=== PATIENT | female | born 1990 | race Caucasian/White ===

== ENCOUNTER → 2017-07-16 07:59 | Outpatient (CLI) | payer OTHER, MEDICAID, SELFPAY ==
--- NOTE | 2017-07-16 | DI.MRI.S_ITS ---
PROCEDURE: MR LUMBAR SPINE WO CON INDICATIONS: LUMBAGO WITH SCIATICA TECHNIQUE: Noncontrast sagittal T1 spin echo and T2 fast echo, sagittal STIR, axial T1 and T2 fast spin echo through the lumbar spine. In cases with scoliosis, additional coronal T2 fast spin echo may be performed. COMPARISON: [facility] [place], CR, XR LUMBAR SPINE 2 OR 3 VIEWS, 05/11/2017, 16:38. FINDINGS: Image quality: Diagnostic. Spinal Cord: The imaged portions of the spinal cord are normal in size and signal. The conus medullaris is normal in position. Paraspinous Soft Tissues: No paravertebral masses. Image soft tissues of the abdomen and pelvis are grossly unremarkable; however, not adequately evaluated on this exam. The abdominal aorta is normal in course and caliber. Bones: The vertebral body heights and marrow signal are within normal limits. There is no acute fracture or dislocation. Lower thoracic levels: Mild degenerative changes of the included lower thoracic levels are present with scattered small Schmorl's nodes. There is no central canal or neural foraminal narrowing at these levels. L1-L2: There is no significant disc bulge. There is mild facet arthrosis. There is no central canal or neural foraminal stenosis. L2-L3: There is no significant disc height loss. Small Schmorl's node is evident at this level. Mild facet arthrosis is present. There is no central canal or neural foraminal narrowing. L3-L4: There is mild diffuse disc bulge and mild to moderate facet arthrosis. There is no significant central canal or neural foraminal narrowing. L4-L5: There is disc desiccation and mild diffuse disc bulge with moderate facet arthrosis and ligamentum flavum laxity. There is no central canal or significant neural foraminal narrowing. L5-S1: No significant disc bulge is evident. There is moderate facet arthrosis. There is no central canal or neural foraminal narrowing. IMPRESSION: 1. Mild degenerative changes of the lumbar spine are more prominent involving the facet joints. 2. No disc protrusions or extrusions. 3. No central canal or neural foraminal narrowing. Dictated by: Philippe Vela M.D. on 07/16/2017 at 9:41 Approved by: Philippe Vela M.D. on 07/16/2017 at 9:45
== END ==
PROVIDERS: Family Provider Family Medicine; PCP Family Medicine; Visit Provider Physician Assistant
DX: M54.40 Lumbago with sciatica, unspecified side (principal); M51.36 Other intervertebral disc degeneration, lumbar region
CPT/HCPCS: 72148

== ENCOUNTER 2017-08-23 14:45 | Emergency (ER) | payer OTHER, MEDICAID, SELFPAY ==
--- NOTE | 2017-08-23 14:55 | ED_ITS ---
HPI - Headache <MARIELA Almonte - Last Filed: 08/23/17 22:44> General Chief Complaint: Headache Stated Complaint: Fever,Shortness of breath,migrane,visual changes Time Seen by Provider: 08/23/17 14:54 History of Present Illness HPI Narrative: 27-year-old female here for complaint of a migraine headache. She reports that the migraine started yesterday along with generalized body aches and malaise. She also reports she has had a cough that has been productive for the last couple of days as well. She also has nasal congestion. She states that the headache is typical for her. She states she has felt warm although she does not know she has had a fever or not. Positive p.o. intake. She denies any other concerns or complaints at this time. Related Data Previous Rx's Medication Instructions Recorded albuterol sulfate HFA 90 2 inhalation INHALATION QID #1 06/11/17 mcg/actuation aerosol inhaler inhalation cyclobenzaprine 10 mg PO Q8HP PRN #45 tab 06/18/17 hydrocodone 5 mg-acetaminophen 325 1 tab PO Q6HP PRN #30 tab 08/22/17 mg tablet tramadol 50 mg tablet 50 mg PO Q4-6H PRN #20 tab 08/22/17 Allergies Allergy/AdvReac Type Severity Reaction Status Date / Time sumatriptan [From IMITREX] AdvReac Intermediate somnolence, Verified 08/23/17 15 :03 nausea, vertigo, visual disturbances Review of Systems <MARIELA Almonte - Last Filed: 08/23/17 22:44> Constitutional Reports body ache(s) and Reports malaise ENT Ears, Nose, Mouth, and Throat: Reports nasal discharge and Denies throat swelling Cardiovascular Denies chest pain, Denies irregular heart rhythm, Denies lightheadedness, Denies palpitations and Denies orthopnea Respiratory Reports cough and Denies wheezing Gastrointestinal Gastrointestinal: Denies abdominal pain, Denies change in bowel habits, Denies diarrhea, Denies nausea and Denies vomiting Genitourinary Denies hematuria, Denies flank pain, Denies urinary incontinence and Denies urinary urgency Musculoskeletal Denies back pain, Denies muscle weakness, Denies numbness and Denies tingling Integumentary/Breasts Denies pruritus, Denies erythema, Denies rash and Denies wounds Neurologic Denies confusion, Denies numbness and Denies tingling Psychiatric Denies anxiety, Denies confusion, Denies depression, Denies homicidal ideation and Denies suicidal ideation Endocrine Denies palpitations Hematologic/Lymphatic Denies easy bruising Allergic/Immunologic Denies urticaria, Denies throat swelling and Denies wheezing Exam <MARIELA Almonte - Last Filed: 08/23/17 22:44> Initial Vital Signs Initial Vital Signs: Vital Signs Temperature 98.0 F 08/23/17 14:57 Pulse Rate 92 H 08/23/17 14:57 Respiratory Rate 16 08/23/17 14:57 Blood Pressure 125/69 H 08/23/17 14:57 Pulse Oximetry 100 08/23/17 14:57 Const General: cooperative and well developed Nutritional Appearance: well nourished Orientation: alert, awake, oriented x3 and not confused HENMT Nose: external nose normal Mouth: oral mucosae normal and moist mucous membranes Eyes General: appearance normal, both eyes and all related structures Eyelids: eyelids normal Conjunctivae: conjunctivae normal Sclera: sclerae normal Pupils: PERRL EOM: EOM intact bilaterally Neck Neck: normal visual inspection, trachea midline, No lymphadenopathy, midline deformity and No JVD Resp Effort & Inspection: normal respiratory effort, able to speak in complete sentences, no respiratory distress and no use of accessory muscles Auscultation: clear to auscultation bilaterally, no rales, no rhonchi and no wheezes Cardio Rate: regular rate Rhythm: regular rhythm Heart Sounds: no click, no gallops, no murmurs and no rubs Pulses: normal peripheral pulses Skin General: no rashes or lesions noted, No jaundice and No petechiae Neuro General: alert, oriented x3, gait normal and no focal motor deficits Speech: speech normal <Linda Morris DO - Last Filed: 08/27/17 06:29> Initial Vital Signs Initial Vital Signs: Vital Signs Temperature 98.0 F 08/23/17 14:57 Pulse Rate 92 H 08/23/17 14:57 Respiratory Rate 16 08/23/17 14:57 Blood Pressure 125/69 H 08/23/17 14:57 Pulse Oximetry 100 08/23/17 14:57 Course <MARIELA Almnote - Last Filed: 08/23/17 22:44> Orders Ordered: Discontinued Medications Diphenhydramine HCl (Benadryl) 25 mg IV NOW ONE Stop: 08/23/17 15:23 Last Admin: 08/23/17 16:30 Dose: 25 mg Ketorolac Tromethamine (Toradol) 30 mg IV NOW ONE Stop: 08/23/17 15:23 Last Admin: 08/23/17 16:30 Dose: 30 mg Metoclopramide HCl (Reglan) 10 mg IV NOW ONE Stop: 08/23/17 15:23 Last Admin: 08/23/17 16:31 Dose: 10 mg Vital Signs - 8 hr 08/23/17 14:57 08/23/17 17:35 Temperature 98.0 F Pulse Rate 92 H 70 Respiratory Rate 16 16 Blood Pressure 125/69 H 120/47 L Pulse Oximetry 100 100 <Linda Morris DO - Last Filed: 08/27/17 06:29> Orders Ordered: Discontinued Medications Diphenhydramine HCl (Benadryl) 25 mg IV NOW ONE Stop: 08/23/17 15:23 Last Admin: 08/23/17 16:30 Dose: 25 mg Ketorolac Tromethamine (Toradol) 30 mg IV NOW ONE Stop: 08/23/17 15:23 Last Admin: 08/23/17 16:30 Dose: 30 mg Metoclopramide HCl (Reglan) 10 mg IV NOW ONE Stop: 08/23/17 15:23 Last Admin: 08/23/17 16:31 Dose: 10 mg Vital Signs - 8 hr 08/23/17 14:57 08/23/17 17:35 Temperature 98.0 F Pulse Rate 92 H 70 Respiratory Rate 16 16 Blood Pressure 125/69 H 120/47 L Pulse Oximetry 100 100 MDM - Headache <MARIELA Almonte - Last Filed: 08/23/17 22:44> Lab Data Result diagrams: 08/23/17 16:01 08/23/17 16:01 Lab Results 08/23/17 08/23/17 08/23/17 Range/Units 16:01 16:01 16:01 WBC 15.0 H (4.5-11.0) X10^3/uL RBC 4.47 (4.0-5.2) X10^6/uL Hgb 12.6 (12.0-16.0) g/dL Hct 37.9 (36-46) % MCV 84.8 (80-100) fL MCH 28.3 (26-34) PG MCHC 33.3 (30-36) % RDW 12.6 (11.6-14.8) % Plt Count 365 (150-400) X10^3/uL Neut % (Auto) 77.9 H (50-75) % Lymph % (Auto) 13.3 L (25-40) % [place] % (Auto) 6.9 (3-14) % Eos % (Auto) 1.0 L (2-4) % Baso % (Auto) 0.9 (0-2) % Neut # (Auto) 77610 H (3932-8356) /uL Sodium 143 (137-145) mmol/L Potassium 3.8 (3.4-5.1) mmol/L Chloride 101 (98-107) mmol/L Carbon Dioxide 31 (22-32) mmol/L BUN 14 (7-17) mg/dL Creatinine 0.90 (0.52-1.04) mg/dL Estimated GFR > 60.0 (>60) mL/min BUN/Creatinine Ratio 15.6 (6-22) Glucose 102 H (70-100) mg/dL Calcium 9.8 (8.4-10.2) mg/dL Total Bilirubin 0.4 (0.2-1.3) mg/dL AST 23 (14-36) IU/L ALT 35 (9-52) IU/L Alkaline Phosphatase 58 (38-126) U/L Total Protein 8.4 H (6.3-8.2) g/dL Albumin 5.1 H (3.5-5.0) g/dL Globulin 3.3 (1.7-4.1) g/dL Albumin/Globulin Ratio 1.5 (1.0-2.8) Influenza A & B (PCR) Negative (Negative) Imaging Data Chest x-ray: Radiologist's impression: Signed Patient: Shayla Porter MR#: [id number] : 1990 Acct:[id number] Age/Sex: 27 / F Date of Service: 08/23/17 Loc: ED Accession Number: [id number] Procedure: XR chest 2V Ordering Provider: Andrews Fabian PROCEDURE: XR CHEST 2V INDICATIONS: cough and malaise TECHNIQUE: 2 views of the chest were acquired. COMPARISON: [facility], , CHEST 2 VIEW, 05/02/2016, 21:07. FINDINGS: Surgical changes and devices: None. Lungs and pleura: No pleural effusions or pneumothorax. Lungs are clear. Mediastinum: Mediastinal contours are normal. Heart size is normal. Bones and chest wall: No suspicious bony abnormalities. Soft tissues appear unremarkable. IMPRESSION: No radiographic evidence of acute cardiopulmonary pathology. Dictated by: Jacek Unger M.D. on 08/23/2017 at 15:39 MDM Narrative Medical decision making narrative: CBC shows elevated white count and neutrophils. Chem panel was unremarkable. Chest x-ray was obtained and was negative for any acute findings. Influenza swab was obtained and was negative as well. She was given fluids along with Reglan and Benadryl and Toradol in the emergency room which reduced her headache. Signs and symptoms presents as a viral illness along with migraine headache. Home to quiet environment. Over-the -counter Tylenol Motrin as needed for discomfort. Plenty of fluids and rest. Follow up with primary care provider in the next few days. Return emergency room for any worsening symptoms. <Linda Morris, - Last Filed: 08/27/17 06:29> Lab Data Lab Results 08/23/17 08/23/17 08/23/17 Range/Units 16:01 16:01 16:01 WBC 15.0 H (4.5-11.0) X10^3/uL RBC 4.47 (4.0-5.2) X10^6/uL Hgb 12.6 (12.0-16.0) g/dL Hct 37.9 (36-46) % MCV 84.8 (80-100) fL MCH 28.3 (26-34) PG MCHC 33.3 (30-36) % RDW 12.6 (11.6-14.8) % Plt Count 365 (150-400) X10^3/uL Neut % (Auto) 77.9 H (50-75) % Lymph % (Auto) 13.3 L (25-40) % [place] % (Auto) 6.9 (3-14) % Eos % (Auto) 1.0 L (2-4) % Baso % (Auto) 0.9 (0-2) % Neut # (Auto) 43163 H (8226-3553) /uL Sodium 143 (137-145) mmol/L Potassium 3.8 (3.4-5.1) mmol/L Chloride 101 (98-107) mmol/L Carbon Dioxide 31 (22-32) mmol/L BUN 14 (7-17) mg/dL Creatinine 0.90 (0.52-1.04) mg/dL Estimated GFR > 60.0 (>60) mL/min BUN/Creatinine Ratio 15.6 (6-22) Glucose 102 H (70-100) mg/dL Calcium 9.8 (8.4-10.2) mg/dL Total Bilirubin 0.4 (0.2-1.3) mg/dL AST 23 (14-36) IU/L ALT 35 (9-52) IU/L Alkaline Phosphatase 58 (38-126) U/L Total Protein 8.4 H (6.3-8.2) g/dL Albumin 5.1 H (3.5-5.0) g/dL Globulin 3.3 (1.7-4.1) g/dL Albumin/Globulin Ratio 1.5 (1.0-2.8) Influenza A & B (PCR) Negative (Negative) Discharge Plan Departure Patient Disposition: Home, Self-Care Clinical Impression: Upper respiratory infection, viral, Headache, migraine Discharge Date/Time: 08/23/17 17:39 Interventions: ED Discharge Assessment Last Done: 08/23/17 17:35 Instructions: DI for Viral Upper Respiratory Infection -- Adult Activity Restrictions/Additional Instructions: Chest x-ray was obtained was negative for any acute findings. Blood work shows elevated white count. Influenza swab was obtained and was negative. Signs and symptoms presents as viral upper respiratory infection with a migraine headache. Use [id number] Tylenol Motrin as needed for any discomfort plenty of fluids and rest. Home to quite environment today to rest follow up with her primary care provider in the next few days for re-evaluation. For any worsening symptoms return to the emergency room. Prescriptions: No Action albuterol sulfate [Proventil HFA] 90 mcg/actuation HFA aerosol inhaler 2 inhalation INHALATION QID Qty: 1 RF: 3 cyclobenzaprine 10 mg tablet 10 mg PO Q8HP PRNQty: 45 RF: 0 hydrocodone-acetaminophen 5-325 mg tablet 1 tab PO Q6HP PRN (Reason: pain) Qty: 30 RF: 0 tramadol 50 mg tablet 50 mg PO Q4-6H PRN (Reason: pain) Qty: 20 RF: 0 Referrals: Sheri Weinstein DO [Primary Care Provider] - <Linda Morris DO - Last Filed: 08/27/17 06:29> Cosign ED Attending Limaature Attestation: I was immediately available in the department for consultation. Documentation has been reviewed. I agree with assessment and plan.
[2017-08-23 14:57] VITALS: BP 125/69; PULSE 92; RESP 16; TEMP 36.7; O2SAT 100; BMI 38.7
--- NOTE | 2017-08-23 15:21 | DI.RAD.S_ITS ---
PROCEDURE: XR CHEST 2V INDICATIONS: cough and malaise TECHNIQUE: 2 views of the chest were acquired. COMPARISON: [facility], , CHEST 2 VIEW, 05/02/2016, 21:07. FINDINGS: Surgical changes and devices: None. Lungs and pleura: No pleural effusions or pneumothorax. Lungs are clear. Mediastinum: Mediastinal contours are normal. Heart size is normal. Bones and chest wall: No suspicious bony abnormalities. Soft tissues appear unremarkable. IMPRESSION: No radiographic evidence of acute cardiopulmonary pathology. Dictated by: Jacek Unger M.D. on 08/23/2017 at 15:39 Approved by: Jacek Unger M.D. on 08/23/2017 at 15:39
[2017-08-23 16:18] LABS: Add Manual Diff / Slide Review NO; Basophils Percent Auto 0.9 % (0-2); Hematocrit 37.9 % (36-46); Hemoglobin 12.6 g/dL (12.0-16.0); Lymphocytes Percent Auto 13.3 % (25-40); Mean Corpuscular HGB Conc 33.3 % (30-36); Mean Corpuscular Hemoglobin 28.3 PG (26-34); Mean Corpuscular Volume 84.8 fL (80-100); Monocytes Percent Auto 6.9 % (3-14); Neutrophils Absolute Auto 11700 /uL (3000-5900); Neutrophils Percent Auto 77.9 % (50-75); Platelet Count 365 X10^3/uL (150-400); Red Blood Cell Count 4.47 X10^6/uL (4.0-5.2); Red Cell Distribution Width 12.6 % (11.6-14.8)
[2017-08-23 16:25] LABS: Alanine Aminotransferase 35 IU/L (9-52); Albumin 5.1 g/dL (3.5-5.0); Albumin Globulin Ratio 1.5 (1.0-2.8); Alkaline Phosphatase 58 U/L (38-126); Aspartate Aminotransferase 23 IU/L (14-36); BUN Creatinine Ratio 15.6 (6-22); Bilirubin Total 0.4 mg/dL (0.2-1.3); Blood Urea Nitrogen 14 mg/dL (7-17); Calcium 9.8 mg/dL (8.4-10.2); Carbon Dioxide 31 mmol/L (22-32); Chloride 101 mmol/L (98-107); Estimated Glomerular Filt Rate > 60.0 mL/min (>60); Globulin 3.3 g/dL (1.7-4.1); Glucose 102 mg/dL (70-100); HEMOLYSIS < 15 (0-50); Potassium 3.8 mmol/L (3.4-5.1); Sodium 143 mmol/L (137-145); Total Protein 8.4 g/dL (6.3-8.2)
[2017-08-23] MEDS: KETOROLAC 60 MG/2 ML VIAL 30 MG IV (16:30)
[2017-08-23] MEDS: diphenhydrAMINE 50 MG/ML VIAL 25 MG IV (16:30)
[2017-08-23] MEDS: METOCLOPRAMIDE 10 MG/2 ML INJ IV (16:31)
[2017-08-23 16:44] LABS: Influenza A and B by PCR Rapid Negative (Negative)
[2017-08-23 17:35] VITALS: BP 120/47; PULSE 70; RESP 16; O2SAT 100
== END 2017-08-23 17:39 | disposition home or self-care (01) ==
PROVIDERS: Emergency Provider Nurse Practitioner Family; Family Provider Family Medicine; PCP Family Medicine
DX: G43.909 Migraine, unspecified, not intractable, without status migrainosus (principal); J06.9 Acute upper respiratory infection, unspecified
CPT/HCPCS: 36591; 71046; 80053; 81003; 81025; 85025; 87400; 99282; 99284; J1200; J1885; J2765

== ENCOUNTER 2017-08-24 23:43 | Emergency (ER) | payer OTHER, MEDICAID, SELFPAY ==
--- NOTE | 2017-08-24 23:52 | ED_ITS ---
HPI - Headache General Chief Complaint: Headache Stated Complaint: Migraine Time Seen by Provider: 08/24/17 23:52 Source: patient and family Mode of arrival: ambulatory Limitations: no limitations History of Present Illness HPI Narrative: 27-year-old female presents with chief complaint of migraine type headache with gradual onset, photophobia. Patient was seen and evaluated yesterday with URI symptoms including this same headache which was treated with Toradol and IV fluids as well as subjective fever and body aches. She had a very thorough evaluation by the midlevel provider including lab work, chest x- ray and flu. She does have history of migraines and states this feels the same as prior MD Complaint: migraine Onset (ago): hour(s) Onset description: gradual Location: diffuse Severity scale (1-10): 8 Quality: aching, throbbing and similar to previous headaches Relieving factors: nothing Exacerbating factors: exertion, light and noise Context: occurred at rest Associated symptoms: none Related Data Previous Rx's Medication Instructions Recorded albuterol sulfate HFA 90 2 inhalation INHALATION QID #1 06/11/17 mcg/actuation aerosol inhaler inhalation cyclobenzaprine 10 mg PO Q8HP PRN #45 tab 06/18/17 hydrocodone 5 mg-acetaminophen 325 1 tab PO Q6HP PRN #30 tab 08/22/17 mg tablet tramadol 50 mg tablet 50 mg PO Q4-6H PRN #20 tab 08/22/17 Allergies Allergy/AdvReac Type Severity Reaction Status Date / Time sumatriptan [From IMITREX] AdvReac Intermediate somnolence, Verified 08/23/17 15 :03 nausea, vertigo, visual disturbances Review of Systems Review of Systems All systems reviewed & are unremarkable except as noted in HPI and below Constitutional Denies chills, Denies fever(s), Reports headache(s), Denies lethargy and Denies weakness Eyes Denies change in vision, Denies eye discharge, Denies irritation and Denies loss of vision ENT Ears, Nose, Mouth, and Throat: Denies change in voice, Reports headache(s), Denies neck pain and Denies sore throat Cardiovascular Denies chest pain, Denies irregular heart rhythm, Denies lightheadedness, Denies palpitations, Denies dyspnea, Denies dyspnea on exertion and Denies orthopnea Respiratory Denies cough, Denies dyspnea, Denies dyspnea on exertion and Denies wheezing Gastrointestinal Gastrointestinal: Denies abdominal pain, Denies change in bowel habits, Denies diarrhea, Denies nausea and Denies vomiting Genitourinary Denies hematuria, Denies flank pain, Denies urinary incontinence and Denies urinary urgency Musculoskeletal Denies neck pain Integumentary/Breasts Denies pruritus, Denies erythema, Denies rash and Denies wounds Neurologic Denies confusion, Reports headache(s), Denies loss of vision and Denies weakness Psychiatric Denies anxiety, Denies confusion, Denies depression, Denies homicidal ideation and Denies suicidal ideation Endocrine Denies palpitations Hematologic/Lymphatic Denies easy bruising Allergic/Immunologic Denies wheezing PFSH Social History Smoking Status: Current every day smoker Exam Narrative Exam Narrative: 27-year-old female obviously uncomfortable, sitting in a dark room Initial Vital Signs Initial Vital Signs: Vital Signs Temperature 97.9 F 08/24/17 23:53 Pulse Rate 79 08/24/17 23:53 Respiratory Rate 16 08/24/17 23:53 Blood Pressure 124/79 H 08/24/17 23:53 Pulse Oximetry 96 08/24/17 23:53 Const General: cooperative and well developed Nutritional Appearance: well nourished Orientation: alert, awake, oriented x3 and not confused HENMT Head: normocephalic and atraumatic Ears: external ears normal and TM's normal bilaterally Nose: external nose normal and No nasal discharge Face and sinus: sinuses nontender, face symmetric, no sinus tenderness and No dry mucous membranes Mouth: oral mucosae normal and moist mucous membranes Teeth and gingiva: dentition normal Throat: tonsils normal and uvula midline Eyes General: appearance normal, both eyes and all related structures Eyelids: eyelids normal Conjunctivae: conjunctivae normal Sclera: sclerae normal Pupils: PERRL EOM: EOM intact bilaterally Neck Neck: normal visual inspection, trachea midline, No lymphadenopathy, No midline deformity and No JVD Lymphatic: No lymphedema Chest Chest: normal inspection of the chest Resp Effort & Inspection: normal respiratory effort, able to speak in complete sentences, no respiratory distress and no use of accessory muscles Auscultation: clear to auscultation bilaterally, no rales, no rhonchi and no wheezes Cardio Rate: regular rate Rhythm: regular rhythm Heart Sounds: no click, no gallops, no murmurs and no rubs Pulses: normal peripheral pulses GI Inspection: non-distended Palpation: soft, no hepatosplenomegaly, No guarding, No pulsatile mass and No tender Auscultation: normal bowel sounds Back/Spine/Pelvis Back: No CVA tenderness Cervical Spine: cervical ROM normal and No pain with cervical ROM Thoracic/Lumbar Spine: thoracic and lumbar spine normal to inspection Skin General: no rashes or lesions noted, No jaundice and No petechiae Neuro General: alert, oriented x3, gait normal and no focal motor deficits Speech: speech normal Extrem General: full ROM, no clubbing, cyanosis or edema, no pedal edema and no calf tenderness Psych Appearance: well kempt Mental Status: mental status grossly normal Attitude: cooperative Thought Content: normal and suicidality Judgment: judgment good Course Orders Ordered: Discontinued Medications Dexamethasone (Decadron) 10 mg IV NOW ONE Stop: 08/25/17 01:30 Last Admin: 08/25/17 01:42 Dose: 10 mg Diphenhydramine HCl (Benadryl) 25 mg IV NOW ONE Stop: 08/25/17 01:30 Last Admin: 08/25/17 01:42 Dose: 25 mg Sodium Chloride (Normal Saline 0.9%) 1,000 mls @ 1,000 mls/hr IV BOLUS ONE Stop: 08/25/17 02:28 Last Infusion: 08/25/17 02:48 Dose: 1,000 mls/hr Admin: 08/25/17 01:42 Dose: 1,000 mls/hr Ketorolac Tromethamine (Toradol) 15 mg IV NOW ONE Stop: 08/25/17 01:31 Last Admin: 08/25/17 01:41 Dose: 15 mg Prochlorperazine (Compazine) 10 mg IV NOW ONE Stop: 08/25/17 01:31 Last Admin: 08/25/17 01:43 Dose: 10 mg Reevaluation(s) Reevaluation #1: Half way through the fluids the patient was sleeping and resting comfortably. She left feeling much better though understandably concerned about the potential of her headache's return Vital Signs - 8 hr 08/24/17 23:53 08/25/17 00:59 08/25/17 02:42 Temperature 97.9 F Pulse Rate 79 57 L 56 L Respiratory Rate 16 18 17 Blood Pressure 124/79 H Blood Pressure [Left Arm] 133/60 H 123/72 H Pulse Oximetry 96 99 98 08/25/17 02:49 Temperature 98 F Pulse Rate 60 Respiratory Rate 18 Blood Pressure 123/72 H Blood Pressure [Left Arm] Pulse Oximetry 99 Discharge Plan Departure Patient Disposition: Home, Self-Care Clinical Impression: Migraine Discharge Date/Time: 08/25/17 02:52 Interventions: ED Discharge Assessment Last Done: 08/25/17 02:52 Instructions: DI for Migraine Activity Restrictions/Additional Instructions: *You have been diagnosed with [ acute migraine headache ] *What to do: * continue to take medications as directed *Follow up with your primary care provider in 2-3 days, call for an appointment. Let them know you were seen in the Emergency Department and that we ask that you be seen in follow up *Return to ER if you should have any new, worsening or concerning symptoms Prescriptions: No Action albuterol sulfate [Proventil HFA] 90 mcg/actuation HFA aerosol inhaler 2 inhalation INHALATION QID Qty: 1 RF: 3 cyclobenzaprine 10 mg tablet 10 mg PO Q8HP PRNQty: 45 RF: 0 hydrocodone-acetaminophen 5-325 mg tablet 1 tab PO Q6HP PRN (Reason: pain) Qty: 30 RF: 0 tramadol 50 mg tablet 50 mg PO Q4-6H PRN (Reason: pain) Qty: 20 RF: 0
[2017-08-24 23:53] VITALS: BP 124/79; PULSE 79; RESP 16; TEMP 36.6; O2SAT 96; BMI 38.7
[2017-08-25 00:59] VITALS: BP 133/60; PULSE 57; RESP 18; O2SAT 99
[2017-08-25] MEDS: KETOROLAC 60 MG/2 ML VIAL 15 MG IV (01:41)
[2017-08-25] MEDS: SODIUM CHLORIDE 0.9% 1,000 ML 1000 ML IV (01:42)
[2017-08-25] MEDS: diphenhydrAMINE 50 MG/ML VIAL 25 MG IV (01:42)
[2017-08-25] MEDS: DEXAMETHASONE 10 MG/ML VIAL IV (01:42)
[2017-08-25] MEDS: PROCHLORPERAZINE 10 MG/2 ML VIAL IV (01:43)
[2017-08-25 02:42] VITALS: BP 123/72; PULSE 56; RESP 17; O2SAT 98
[2017-08-25 02:49] VITALS: BP 123/72; PULSE 60; RESP 18; TEMP 36.6; O2SAT 99
== END 2017-08-25 02:52 | disposition home or self-care (01) ==
PROVIDERS: Emergency Provider Emergency Medicine; Family Provider Family Medicine; PCP Family Medicine
DX: G43.909 Migraine, unspecified, not intractable, without status migrainosus (principal)
CPT/HCPCS: 96361; 96374; 96375; 99284; J0780; J1100; J1200; J1885

== ENCOUNTER 2017-10-17 16:00 | Outpatient (RCR) | payer OTHER, MEDICAID, SELFPAY ==
--- NOTE | 2017-09-06 10:19 | PT.OTN ---
Current Diagnoses Pain in right hip (09/05/17) Sacrococcygeal disorders, not elsewhere classified (09/05/17) Radiculopathy, lumbosacral region (09/05/17) Lumbago with sciatica, right side (09/05/17) Other abnormalities of gait and mobility (09/05/17) Other sprain of right hip, sequela (09/05/17) Physical Therapy Treatment Note PT-OP-A Visit Information Start: 09/05/17 17:25 Freq: Status: Active Protocol: Document 09/05/17 13:45 DCW (Rec: 09/06/17 10:16 [facility] [id number]) Out-Patient Physical Therapy Visit Information Visit Information Visit Type Progress Note Visit Start Time 13:45 Visit Stop Time 14:30 Total Visit Minutes 45 Visit Number 13 Evaluation Information Evaluation Date 03/16/17 PT-OP-B Current Condition Start: 09/05/17 17:25 Freq: Status: Active Protocol: Document 09/05/17 13:45 DCW (Rec: 09/06/17 10:16 [facility] [id number]) Current Condition History of Current Condition Onset Date January, Current Complaints Severe hip and back pain, participation restriction, immobility History of Current Condition Pt evaluated prior to EMR switch, please see pt's chart in Therapy Source for complete history and evaluation. Briefly, pt presented to skilled therapy in early March,, with complaints of severe right hip and low back pain. Testing indicated a right labral tear, later confirmed with MRI. Pt put therapy on hold in an attempt to get surgical treatment for her hip, unfortunately, over the past few months, any clinic she has found willing to perform the surgery will not accept her insurance, and the only clinic that accepts her insurance does not feel comfortable performing the surgery. Pt now returns to skilled therapy with continued right hip pain, and worsening lumbar pain. Prior Treatments and Tests Hip MRI, Lumbar MRI, lumbar x- rays Future Testing and Treatments Planned Pt hopeful for labral repair surgery Treatment Goals Patient/Caregiver Goals I want to feel less pain, I want more mobility, like being able to bend over and pick stuff up. I want to walk without a limp, or get out of bed without grabbing onto a wall because I feel like I'm going to fall over. Mainly, I want to be able to just walk around with my kids. 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 Current Functional Impairments (Reported) Functional Limitations- Work/School Limited bending and lifting at work Functional Limitations- Recreation/ Unable to take her children Hobbies anywhere that requires walking , such as the Arts festival or the zoo Personal Factors Other Personal Factors That May Effect Depression, Prior Hx drug Therapy/Recovery abuse PT-OP-C Subjective Start: 09/05/17 17:25 Freq: Status: Active Protocol: Document 09/05/17 13:45 DCW (Rec: 09/06/17 10:16 DCW [id number]) OP-PT Subjective Patient Comments Patient Comments Things seem to have gotten worse since the last time I was in here, especially my back. Patient Reported Progress Worse PT-OP-F Manual Assessment Start: 09/05/17 17:25 Freq: Status: Active Protocol: Document 09/05/17 13:45 DCW (Rec: 09/06/17 10:16 DCW [id number]) Manual Assessments Soft Tissue Assessment Soft Tissue Mobility Assessment Severe hypertonia in R psoas, R piriformis, B thoracic and lumbar paraspinals and QL Moderate Hypertonia R quads, R glutes Joint Mobility Assessment Joint Mobility Assessment Restricted R hip mobility, clunk/grinding with passive movement PT-OP-G Mobility & Gait Start: 09/05/17 17:25 Freq: Status: Active Protocol: Document 09/05/17 13:45 DCW (Rec: 09/06/17 10:16 DCW [id number]) OP Gait Assessment Gait Gait Assistance Required: Independent Assistive Devices Assistive Device None Gait Deviations General Gait Pattern Antalgic Flexed Trunk Lateral Trunk Lean Factors Limiting Gait Function Factors Limiting Gait Function Decreased Strength Limited Range of Motion Pain PT-OP-K Range of Motion Start: 09/06/17 10:17 Freq: Status: Active Protocol: Document 09/05/17 13:45 DCW (Rec: 09/06/17 10:19 DCW [id number]) Hip Goniometric Range of Motion Hip Measured in Degrees Right Passive Hip ROM WFL No Testing Position Supine Flexion w/Knee Flexed 90 Abduction 35 PT-OP-L Special Tests Start: 09/05/17 17:25 Freq: Status: Active Protocol: Document 09/05/17 13:45 DCW (Rec: 09/06/17 10:16 [facility] [id number]) Special Tests Lumbar Spine Special Tests Kaden Test Results rectus femoris tightness Straight Leg Raise Test Results Left positive ipsilateral Slump Test Results Negative Hip Special Tests Scour Test Test Results Right positive POLLY Test Results Right anterior hip pian PT-OP-M Strength Start: 09/05/17 17:25 Freq: Status: Active Protocol: Document 09/05/17 13:45 DCW (Rec: 09/06/17 10:16 [facility] [id number]) Hip Strength Hip Manual Muscle Testing Left Flexion (L2) 4+ Good+ Extension (S1) 4+ Good+ Abduction 4+ Good+ Adduction 4+ Good+ External Rotation 4+ Good+ Internal Rotation 4+ Good+ Right Flexion (L2) 4- Good- Extension (S1) 4- Good- Abduction 4- Good- Adduction 4 Good External Rotation 4- Good- Internal Rotation 4- Good- PT-OP-Q Treatments Start: 09/05/17 17:25 Freq: Status: Active Protocol: Document 09/05/17 13:45 DCW (Rec: 09/06/17 10:19 [facility] [id number]) Manual Therapy Treatment Soft Tissue Mobilization 2 Body Location T/L paraspinals Mobilization Type Myofascial Release Sustained Pressure Trigger Point Release Intensity/Depth Moderate Body Position Prone 1 Body Location Psoas Mobilization Type Cross-Friction Sustained Pressure Intensity/Depth Deep Body Position Hooklying Joint Mobilizations 1 Joint Lumbar Direction P->A Grade III Body Position Prone PT-OP-T Assessment and Plan Start: 09/05/17 17:25 Freq: Status: Active Protocol: Document 09/05/17 13:45 DCW (Rec: 09/06/17 10:16 [facility] [id number]) Physical Therapy Assessment Rehab Potential Rehabilitation Potential Fair Impairments Impairments Activity Tolerance Functional Activities Functional Mobility Gait Pain Posture ROM Soft Tissue Mobility Strength Tone Goals Five Impairment Muscle Tone Group Home Goal (LTG) Moderate tone in B Psoas, Piriformis, Paraspinals, and QL LTG Duration 10/18/17 Four Impairment Hip ROM High School Learning Support Teacher Goal (LTG) R hip flexion to 110? R hip abduction to 45? LTG Duration 10/18/17 Three Impairment Special Tests Short Term Goal (STG) Kaden test negative STG Duration 09/27/17 Group Home Goal (LTG) Pain-free POLLY and SLR tests LTG Duration 10/18/17 Two Impairment Activity Restriction Short Term Goal (STG) Pt to participate in a 2 mile walk with her children STG Duration 09/27/17 High School Learning Support Teacher Goal (LTG) Pt to report two days of work in a row symptom-free LTG Duration 10/18/17 One Impairment Pt does not have an appropriate HEP Short Term Goal (STG) Pt to be independent and compliant with HEP STG Duration 09/27/17 Assessment Summary Assessment Pt presents with worsening sympotms since her last PT visit, especially in her low and mid back, although that is likely from compensation due to her moderate antalgic limp secondary to her right acetabular labral tear. Pt may benefit from skilled therapy focusing on decreasing muscle tone, improving hip strength, increasing ROM, and pain- control modalities. Physical Therapy Plan Frequency and Duration Frequency of Treatment 2x/Week Duration of Treatment 12 weeks Plan of Care Start Date 09/05/17 Plan of Care End Date 11/28/17 Therapeutic Interventions Therapeutic Interventions Aquatic Therapy Gait Training Home Exercise Program Joint Mobilizations Manual Therapy Neuromuscular Re-education Self-Care/Home Management Soft Tissue Mobilization Therapeutic Activities Therapeutic Exercises Modalities Cold Pack/Ice Massage Electric Stimulation Hot Packs Ultrasound Next Visit Focus/Plan Next Note Type Treatment Note Next Visit Plan STM, Strengthening, Pain- control modalities
--- NOTE | 2017-09-06 10:20 | PT.OPPOC ---
Current Diagnoses Pain in right hip (09/05/17) Sacrococcygeal disorders, not elsewhere classified (09/05/17) Radiculopathy, lumbosacral region (09/05/17) Lumbago with sciatica, right side (09/05/17) Other abnormalities of gait and mobility (09/05/17) Other sprain of right hip, sequela (09/05/17) Provider Visit Care Team Role Provider Type Sheri Weinstein DO Family Provider Physician Primary Care Provider Specialty: Family Practice Address: [address] [place] [address], [id number] Email: [email or web address] Matt Espinoza MD Attending Provider Physician Specialty: Orthopedics Address: [address] [place] [address], [id number] Email: Plan Of Care PT-OP-T Assessment and Plan Start: 09/05/17 17:25 Freq: Status: Active Protocol: Document 09/05/17 13:45 DCW (Rec: 09/06/17 10:16 DCW [id number]) Physical Therapy Assessment Rehab Potential Rehabilitation Potential Fair Impairments Impairments Activity Tolerance Functional Activities Functional Mobility Gait Pain Posture ROM Soft Tissue Mobility Strength Tone Goals Five Impairment Muscle Tone Merchandise Handler Goal (LTG) Moderate tone in B Psoas, Piriformis, Paraspinals, and QL LTG Duration 10/18/17 Four Impairment Hip ROM Custodial Goal (LTG) R hip flexion to 110? R hip abduction to 45? LTG Duration 10/18/17 Three Impairment Special Tests Short Term Goal (STG) Kaden test negative STG Duration 09/27/17 Merchandise Handler Goal (LTG) Pain-free POLLY and SLR tests LTG Duration 10/18/17 Two Impairment Activity Restriction Short Term Goal (STG) Pt to participate in a 2 mile walk with her children STG Duration 09/27/17 Merchandise Handler Goal (LTG) Pt to report two days of work in a row symptom-free LTG Duration 10/18/17 One Impairment Pt does not have an appropriate HEP Short Term Goal (STG) Pt to be independent and compliant with HEP STG Duration 09/27/17 Assessment Summary Assessment Pt presents with worsening sympotms since her last PT visit, especially in her low and mid back, although that is likely from compensation due to her moderate antalgic limp secondary to her right acetabular labral tear. Pt may benefit from skilled therapy focusing on decreasing muscle tone, improving hip strength, increasing ROM, and pain- control modalities. Physical Therapy Plan Frequency and Duration Frequency of Treatment 2x/Week Duration of Treatment 12 weeks Plan of Care Start Date 09/05/17 Plan of Care End Date 11/28/17 Therapeutic Interventions Therapeutic Interventions Aquatic Therapy Gait Training Home Exercise Program Joint Mobilizations Manual Therapy Neuromuscular Re-education Self-Care/Home Management Soft Tissue Mobilization Therapeutic Activities Therapeutic Exercises Modalities Cold Pack/Ice Massage Electric Stimulation Hot Packs Ultrasound Next Visit Focus/Plan Next Note Type Treatment Note Next Visit Plan STM, Strengthening, Pain- control modalities Plan of Care Dates Plan of Care Start Date 09/05/17 Plan of Care End Date 11/28/17 Please Sign and Return: I have reviewed this Plan of Care and certify that the skilled therapy services above are required to meet the patient?s needs. Physician Signature Date Printed Name and Credentials Clinical Instructor Signature Printed Name and Credentials
--- NOTE | 2017-09-19 16:46 | PT.OTN ---
Current Diagnoses Sacrococcygeal disorders, not elsewhere classified (09/19/17) Lumbago with sciatica, right side (09/19/17) Physical Therapy Treatment Note PT-OP-A Visit Information Start: 09/05/17 17:25 Freq: Status: Active Protocol: Document 09/19/17 16:00 DCW (Rec: 09/19/17 16:46 DCW [id number]) Out-Patient Physical Therapy Visit Information Visit Information Visit Type Treatment Note Visit Start Time 16:00 Visit Stop Time 16:45 Total Visit Minutes 45 Visit Number 14 Evaluation Information Evaluation Date 03/16/17 PT-OP-B Current Condition Start: 09/05/17 17:25 Freq: Status: Active Protocol: Document 09/05/17 13:45 DCW (Rec: 09/06/17 10:16 DCW [id number]) Current Condition History of Current Condition Onset Date January, Current Complaints Severe hip and back pain, participation restriction, immobility History of Current Condition Pt evaluated prior to EMR switch, please see pt's chart in Therapy Source for complete history and evaluation. Briefly, pt presented to skilled therapy in early March,, with complaints of severe right hip and low back pain. Testing indicated a right labral tear, later confirmed with MRI. Pt put therapy on hold in an attempt to get surgical treatment for her hip, unfortunately, over the past few months, any clinic she has found willing to perform the surgery will not accept her insurance, and the only clinic that accepts her insurance does not feel comfortable performing the surgery. Pt now returns to skilled therapy with continued right hip pain, and worsening lumbar pain. Prior Treatments and Tests Hip MRI, Lumbar MRI, lumbar x- rays Future Testing and Treatments Planned Pt hopeful for labral repair surgery Treatment Goals Patient/Caregiver Goals I want to feel less pain, I want more mobility, like being able to bend over and pick stuff up. I want to walk without a limp, or get out of bed without grabbing onto a wall because I feel like I'm going to fall over. Mainly, I want to be able to just walk around with my kids. Prior Functional Status Baseline Function- ADL's Independent Baseline Function- Mobility Independent Baseline Function- Work/School Works at [employer] store Current Functional Impairments (Reported) Functional Limitations- Work/School Limited bending and lifting at work Functional Limitations- Recreation/ Unable to take her children Hobbies anywhere that requires walking , such as the [employer] festival or the zoo Personal Factors Other Personal Factors That May Effect Depression, Prior Hx drug Therapy/Recovery abuse PT-OP-C Subjective Start: 09/05/17 17:25 Freq: Status: Active Protocol: Document 09/19/17 16:00 DCW (Rec: 09/19/17 16:46 DCW [id number]) OP-PT Subjective Patient Comments Patient Comments Pt reports that she saw her pain specialist yesterday, who cut back her pain medication, and she reports she really feeling it today. PT-OP-F Manual Assessment Start: 09/05/17 17:25 Freq: Status: Active Protocol: Document 09/05/17 13:45 DCW (Rec: 09/06/17 10:16 DCW [id number]) Manual Assessments Soft Tissue Assessment Soft Tissue Mobility Assessment Severe hypertonia in R psoas, R piriformis, B thoracic and lumbar paraspinals and QL Moderate Hypertonia R quads, R glutes Joint Mobility Assessment Joint Mobility Assessment Restricted R hip mobility, clunk/grinding with passive movement PT-OP-G Mobility & Gait Start: 09/05/17 17:25 Freq: Status: Active Protocol: Document 09/05/17 13:45 DCW (Rec: 09/06/17 10:16 DCW [id number]) OP Gait Assessment Gait Gait Assistance Required: Independent Assistive Devices Assistive Device None Gait Deviations General Gait Pattern Antalgic Flexed Trunk Lateral Trunk Lean Factors Limiting Gait Function Factors Limiting Gait Function Decreased Strength Limited Range of Motion Pain PT-OP-K Range of Motion Start: 09/06/17 10:17 Freq: Status: Active Protocol: Document 09/05/17 13:45 DCW (Rec: 09/06/17 10:19 DCW [id number]) Hip Goniometric Range of Motion Hip Measured in Degrees Right Passive Hip ROM WFL No Testing Position Supine Flexion w/Knee Flexed 90 Abduction 35 PT-OP-L Special Tests Start: 09/05/17 17:25 Freq: Status: Active Protocol: Document 09/05/17 13:45 DCW (Rec: 09/06/17 10:16 DCW [id number]) Special Tests Lumbar Spine Special Tests Kaden Test Results rectus femoris tightness Straight Leg Raise Test Results Left positive ipsilateral Slump Test Results Negative Hip Special Tests Scour Test Test Results Right positive POLLY Test Results Right anterior hip pian PT-OP-M Strength Start: 09/05/17 17:25 Freq: Status: Active Protocol: Document 09/05/17 13:45 DCW (Rec: 09/06/17 10:16 DCW [id number]) Hip Strength Hip Manual Muscle Testing Left Flexion (L2) 4+ Good+ Extension (S1) 4+ Good+ Abduction 4+ Good+ Adduction 4+ Good+ External Rotation 4+ Good+ Internal Rotation 4+ Good+ Right Flexion (L2) 4- Good- Extension (S1) 4- Good- Abduction 4- Good- Adduction 4 Good External Rotation 4- Good- Internal Rotation 4- Good- PT-OP-Q Treatments Start: 09/05/17 17:25 Freq: Status: Active Protocol: Document 09/19/17 16:00 DCW (Rec: 09/19/17 16:46 DCW [id number]) Cardio Equipment Recumbent Bicycle Duration (Minutes) 5 Resistance 3 Seat Position 6 Therapeutic Exercises Sidelying Exercises 2 Sidelying Exercise Name Reverse Clamshell Side bilateral Resistance Lv 2 Equipment Used T-Band 1 Sidelying Exercise Name Clamshell Side bilateral Resistance Lv 2 Equipment Used T-Band Other Exercises 2 Other Exercise Name Resisted Forward/Retro-walking Side bilateral Resistance Green Equipment Used T-Band 1 Other Exercise Name Resisted Side-stepping Side bilateral Resistance Green Equipment Used T-Band Manual Therapy Treatment Soft Tissue Mobilization 3 Body Location Piriformis Mobilization Type Myofascial Release Sustained Pressure Trigger Point Release Intensity/Depth Moderate Body Position Prone 2 Body Location T/L paraspinals Mobilization Type Myofascial Release Sustained Pressure Trigger Point Release Intensity/Depth Moderate Body Position Prone 1 Body Location Psoas Mobilization Type Cross-Friction Sustained Pressure Intensity/Depth Deep Body Position Hooklying Joint Mobilizations 1 Joint Lumbar Direction P->A Grade III Body Position Prone Manual Traction Lumbar Details Right LE long-axis traction PT-OP-T Assessment and Plan Start: 09/05/17 17:25 Freq: Status: Active Protocol: Document 09/19/17 16:00 DCW (Rec: 09/19/17 16:46 DCW [id number]) Physical Therapy Assessment Impairments Impairments Activity Tolerance Functional Activities Functional Mobility Gait Pain Posture ROM Soft Tissue Mobility Strength Tone Goals Five Impairment Muscle Tone Caponizer Goal (LTG) Moderate tone in B Psoas, Piriformis, Paraspinals, and QL LTG Duration 10/18/17 Four Impairment Hip ROM Group Home Goal (LTG) R hip flexion to 110? R hip abduction to 45? LTG Duration 10/18/17 Three Impairment Special Tests Short Term Goal (STG) Kaden test negative STG Duration 09/27/17 Group Home Goal (LTG) Pain-free POLLY and SLR tests LTG Duration 10/18/17 Two Impairment Activity Restriction Short Term Goal (STG) Pt to participate in a 2 mile walk with her children STG Duration 09/27/17 Caponizer Goal (LTG) Pt to report two days of work in a row symptom-free LTG Duration 10/18/17 One Impairment Pt does not have an appropriate HEP Short Term Goal (STG) Pt to be independent and compliant with HEP STG Duration 09/27/17 Assessment Summary Assessment Pt tolerated treatment well today, however noted fairly fast fatigue with hip strengthening. Physical Therapy Plan Frequency and Duration Frequency of Treatment 2x/Week Duration of Treatment 12 weeks Plan of Care Start Date 09/05/17 Plan of Care End Date 11/28/17 Therapeutic Interventions Therapeutic Interventions Aquatic Therapy Gait Training Home Exercise Program Joint Mobilizations Manual Therapy Neuromuscular Re-education Self-Care/Home Management Soft Tissue Mobilization Therapeutic Activities Therapeutic Exercises Modalities Cold Pack/Ice Massage Electric Stimulation Hot Packs Ultrasound Next Visit Focus/Plan Next Note Type Treatment Note Next Visit Plan STM, Strengthening, Pain- control modalities
--- NOTE | 2017-09-26 16:51 | PT.OTN ---
Current Diagnoses Sacrococcygeal disorders, not elsewhere classified (09/26/17) Lumbago with sciatica, right side (09/26/17) Physical Therapy Treatment Note PT-OP-A Visit Information Start: 09/05/17 17:25 Freq: Status: Active Protocol: Document 09/26/17 16:00 DCW (Rec: 09/26/17 16:50 DCW [id number]) Out-Patient Physical Therapy Visit Information Visit Information Visit Type Treatment Note Visit Start Time 16:00 Visit Stop Time 16:55 Total Visit Minutes 55 Visit Number 15 Evaluation Information Evaluation Date 03/16/17 PT-OP-B Current Condition Start: 09/05/17 17:25 Freq: Status: Active Protocol: Document 09/05/17 13:45 DCW (Rec: 09/06/17 10:16 DCW [id number]) Current Condition History of Current Condition Onset Date January, Current Complaints Severe hip and back pain, participation restriction, immobility History of Current Condition Pt evaluated prior to EMR switch, please see pt's chart in [facility] for complete history and evaluation. Briefly, pt presented to skilled therapy in early March,, with complaints of severe right hip and low back pain. Testing indicated a right labral tear, later confirmed with MRI. Pt put therapy on hold in an attempt to get surgical treatment for her hip, unfortunately, over the past few months, any clinic she has found willing to perform the surgery will not accept her insurance, and the only clinic that accepts her insurance does not feel comfortable performing the surgery. Pt now returns to skilled therapy with continued right hip pain, and worsening lumbar pain. Prior Treatments and Tests Hip MRI, Lumbar MRI, lumbar x- rays Future Testing and Treatments Planned Pt hopeful for labral repair surgery Treatment Goals Patient/Caregiver Goals I want to feel less pain, I want more mobility, like being able to bend over and pick stuff up. I want to walk without a limp, or get out of bed without grabbing onto a wall because I feel like I'm going to fall over. Mainly, I want to be able to just walk around with my kids. Prior Functional Status Baseline Function- ADL's Independent Baseline Function- Mobility Independent Baseline Function- Work/School Works at [employer] store Current Functional Impairments (Reported) Functional Limitations- Work/School Limited bending and lifting at work Functional Limitations- Recreation/ Unable to take her children Hobbies anywhere that requires walking , such as the [employer] festival or the zoo Personal Factors Other Personal Factors That May Effect Depression, Prior Hx drug Therapy/Recovery abuse PT-OP-C Subjective Start: 09/05/17 17:25 Freq: Status: Active Protocol: Document 09/26/17 16:00 DCW (Rec: 09/26/17 16:50 DCW [id number]) OP-PT Subjective Patient Comments Patient Comments I haven't had any burning in my back, which is good. I think I just know how to avoid certain movements that hurt more. Patient Reported Progress Improving PT-OP-F Manual Assessment Start: 09/05/17 17:25 Freq: Status: Active Protocol: Document 09/05/17 13:45 DCW (Rec: 09/06/17 10:16 DCW [id number]) Manual Assessments Soft Tissue Assessment Soft Tissue Mobility Assessment Severe hypertonia in R psoas, R piriformis, B thoracic and lumbar paraspinals and QL Moderate Hypertonia R quads, R glutes Joint Mobility Assessment Joint Mobility Assessment Restricted R hip mobility, clunk/grinding with passive movement PT-OP-G Mobility & Gait Start: 09/05/17 17:25 Freq: Status: Active Protocol: Document 09/05/17 13:45 DCW (Rec: 09/06/17 10:16 DCW [id number]) OP Gait Assessment Gait Gait Assistance Required: Independent Assistive Devices Assistive Device None Gait Deviations General Gait Pattern Antalgic Flexed Trunk Lateral Trunk Lean Factors Limiting Gait Function Factors Limiting Gait Function Decreased Strength Limited Range of Motion Pain PT-OP-K Range of Motion Start: 09/06/17 10:17 Freq: Status: Active Protocol: Document 09/05/17 13:45 DCW (Rec: 09/06/17 10:19 DCW [id number]) Hip Goniometric Range of Motion Hip Measured in Degrees Right Passive Hip ROM WFL No Testing Position Supine Flexion w/Knee Flexed 90 Abduction 35 PT-OP-L Special Tests Start: 09/05/17 17:25 Freq: Status: Active Protocol: Document 09/05/17 13:45 DCW (Rec: 09/06/17 10:16 DCW [id number]) Special Tests Lumbar Spine Special Tests Kaden Test Results rectus femoris tightness Straight Leg Raise Test Results Left positive ipsilateral Slump Test Results Negative Hip Special Tests Scour Test Test Results Right positive POLLY Test Results Right anterior hip pian PT-OP-M Strength Start: 09/05/17 17:25 Freq: Status: Active Protocol: Document 09/05/17 13:45 DCW (Rec: 09/06/17 10:16 DCW [id number]) Hip Strength Hip Manual Muscle Testing Left Flexion (L2) 4+ Good+ Extension (S1) 4+ Good+ Abduction 4+ Good+ Adduction 4+ Good+ External Rotation 4+ Good+ Internal Rotation 4+ Good+ Right Flexion (L2) 4- Good- Extension (S1) 4- Good- Abduction 4- Good- Adduction 4 Good External Rotation 4- Good- Internal Rotation 4- Good- PT-OP-Q Treatments Start: 09/05/17 17:25 Freq: Status: Active Protocol: Document 09/26/17 16:00 DCW (Rec: 09/26/17 16:50 DCW [id number]) Cardio Equipment Recumbent Bicycle Duration (Minutes) 6 Resistance 3 Seat Position 6 Gym Equipment Shuttle Recovery Unilateral Squats Resistance 50# Shuttle Recovery Platform Stable Bilateral Squats Resistance 100# Shuttle Recovery Platform Stable Therapeutic Exercises Standing Exercises 1 Standing Exercise Name Lunges onto BOSU Side bilateral Equipment Used BOSU Other Exercises 2 Other Exercise Name Resisted Forward/Retro-walking Side bilateral Resistance Green Equipment Used T-Band 1 Other Exercise Name Resisted Side-stepping Side bilateral Resistance Green Equipment Used T-Band Manual Therapy Treatment Soft Tissue Mobilization 3 Body Location Piriformis Mobilization Type Myofascial Release Sustained Pressure Trigger Point Release Intensity/Depth Moderate Body Position Prone 2 Body Location T/L paraspinals Mobilization Type Myofascial Release Sustained Pressure Trigger Point Release Intensity/Depth Moderate Body Position Prone 1 Body Location Psoas Mobilization Type Cross-Friction Sustained Pressure Intensity/Depth Deep Body Position Hooklying Joint Mobilizations 1 Joint Lumbar Direction P->A Grade III Body Position Prone Manual Traction Lumbar Details Right LE long-axis traction PT-OP-R Modalities Start: 09/05/17 17:25 Freq: Status: Active Protocol: Document 09/26/17 16:00 DCW (Rec: 09/26/17 16:51 DCW [id number]) Hot Pack/Cold Pack Treatment Hot Pack Location Lumbar spine Patient Position Hooklying Treatment Duration (minutes) 10 Patient Tolerance Good PT-OP-T Assessment and Plan Start: 09/05/17 17:25 Freq: Status: Active Protocol: Document 09/26/17 16:00 DCW (Rec: 09/26/17 16:50 DCW [id number]) Physical Therapy Assessment Impairments Impairments Activity Tolerance Functional Activities Functional Mobility Gait Pain Posture ROM Soft Tissue Mobility Strength Tone Goals Five Impairment Muscle Tone Program Mgr Goal (LTG) Moderate tone in B Psoas, Piriformis, Paraspinals, and QL LTG Duration 10/18/17 Four Impairment Hip ROM Retirement Goal (LTG) R hip flexion to 110? R hip abduction to 45? LTG Duration 10/18/17 Three Impairment Special Tests Short Term Goal (STG) Kaden test negative STG Duration 09/27/17 Program Mgr Goal (LTG) Pain-free POLLY and SLR tests LTG Duration 10/18/17 Two Impairment Activity Restriction Short Term Goal (STG) Pt to participate in a 2 mile walk with her children STG Duration 09/27/17 Program Mgr Goal (LTG) Pt to report two days of work in a row symptom-free LTG Duration 10/18/17 One Impairment Pt does not have an appropriate HEP Short Term Goal (STG) Pt to be independent and compliant with HEP STG Duration 09/27/17 Assessment Summary Assessment Pt tolerated increased hip strengthening today with less fatigue. Physical Therapy Plan Frequency and Duration Frequency of Treatment 2x/Week Duration of Treatment 12 weeks Plan of Care Start Date 09/05/17 Plan of Care End Date 11/28/17 Therapeutic Interventions Therapeutic Interventions Aquatic Therapy Gait Training Home Exercise Program Joint Mobilizations Manual Therapy Neuromuscular Re-education Self-Care/Home Management Soft Tissue Mobilization Therapeutic Activities Therapeutic Exercises Modalities Cold Pack/Ice Massage Electric Stimulation Hot Packs Ultrasound Next Visit Focus/Plan Next Note Type Treatment Note Next Visit Plan STM, Strengthening, Pain- control modalities
--- NOTE | 2017-10-03 16:44 | PT.OTN ---
Current Diagnoses Sacrococcygeal disorders, not elsewhere classified (10/03/17) Lumbago with sciatica, right side (10/03/17) Physical Therapy Treatment Note PT-OP-A Visit Information Start: 09/05/17 17:25 Freq: Status: Active Protocol: Document 10/03/17 16:00 DCW (Rec: 10/03/17 16:44 DCW [id number]) Out-Patient Physical Therapy Visit Information Visit Information Visit Type Treatment Note Visit Start Time 16:00 Visit Stop Time 16:55 Total Visit Minutes 55 Visit Number 16 Evaluation Information Evaluation Date 03/16/17 PT-OP-B Current Condition Start: 09/05/17 17:25 Freq: Status: Active Protocol: Document 09/05/17 13:45 DCW (Rec: 09/06/17 10:16 DCW [id number]) Current Condition History of Current Condition Onset Date January, Current Complaints Severe hip and back pain, participation restriction, immobility History of Current Condition Pt evaluated prior to EMR switch, please see pt's chart in Therapy [facility] for complete history and evaluation. Briefly, pt presented to skilled therapy in early March,, with complaints of severe right hip and low back pain. Testing indicated a right labral tear, later confirmed with MRI. Pt put therapy on hold in an attempt to get surgical treatment for her hip, unfortunately, over the past few months, any clinic she has found willing to perform the surgery will not accept her insurance, and the only clinic that accepts her insurance does not feel comfortable performing the surgery. Pt now returns to skilled therapy with continued right hip pain, and worsening lumbar pain. Prior Treatments and Tests Hip MRI, Lumbar MRI, lumbar x- rays Future Testing and Treatments Planned Pt hopeful for labral repair surgery Treatment Goals Patient/Caregiver Goals I want to feel less pain, I want more mobility, like being able to bend over and pick stuff up. I want to walk without a limp, or get out of bed without grabbing onto a wall because I feel like I'm going to fall over. Mainly, I want to be able to just walk around with my kids. Prior Functional Status Baseline Function- ADL's Independent Baseline Function- Mobility Independent Baseline Function- Work/School Works at [employer] store Current Functional Impairments (Reported) Functional Limitations- Work/School Limited bending and lifting at work Functional Limitations- Recreation/ Unable to take her children Hobbies anywhere that requires walking , such as the [employer] festival or the zoo Personal Factors Other Personal Factors That May Effect Depression, Prior Hx drug Therapy/Recovery abuse PT-OP-C Subjective Start: 09/05/17 17:25 Freq: Status: Active Protocol: Document 10/03/17 16:00 DCW (Rec: 10/03/17 16:44 DCW [id number]) OP-PT Subjective Patient Comments Patient Comments Pt reports she is getting a hip injection next week prior to her PT appointment. PT-OP-F Manual Assessment Start: 09/05/17 17:25 Freq: Status: Active Protocol: Document 09/05/17 13:45 DCW (Rec: 09/06/17 10:16 DCW [id number]) Manual Assessments Soft Tissue Assessment Soft Tissue Mobility Assessment Severe hypertonia in R psoas, R piriformis, B thoracic and lumbar paraspinals and QL Moderate Hypertonia R quads, R glutes Joint Mobility Assessment Joint Mobility Assessment Restricted R hip mobility, clunk/grinding with passive movement PT-OP-G Mobility & Gait Start: 09/05/17 17:25 Freq: Status: Active Protocol: Document 09/05/17 13:45 DCW (Rec: 09/06/17 10:16 DCW [id number]) OP Gait Assessment Gait Gait Assistance Required: Independent Assistive Devices Assistive Device None Gait Deviations General Gait Pattern Antalgic Flexed Trunk Lateral Trunk Lean Factors Limiting Gait Function Factors Limiting Gait Function Decreased Strength Limited Range of Motion Pain PT-OP-K Range of Motion Start: 09/06/17 10:17 Freq: Status: Active Protocol: Document 09/05/17 13:45 DCW (Rec: 09/06/17 10:19 DCW [id number]) Hip Goniometric Range of Motion Hip Measured in Degrees Right Passive Hip ROM WFL No Testing Position Supine Flexion w/Knee Flexed 90 Abduction 35 PT-OP-L Special Tests Start: 09/05/17 17:25 Freq: Status: Active Protocol: Document 09/05/17 13:45 DCW (Rec: 09/06/17 10:16 DCW [id number]) Special Tests Lumbar Spine Special Tests Kaden Test Results rectus femoris tightness Straight Leg Raise Test Results Left positive ipsilateral Slump Test Results Negative Hip Special Tests Scour Test Test Results Right positive POLLY Test Results Right anterior hip pian PT-OP-M Strength Start: 09/05/17 17:25 Freq: Status: Active Protocol: Document 09/05/17 13:45 DCW (Rec: 09/06/17 10:16 DCW [id number]) Hip Strength Hip Manual Muscle Testing Left Flexion (L2) 4+ Good+ Extension (S1) 4+ Good+ Abduction 4+ Good+ Adduction 4+ Good+ External Rotation 4+ Good+ Internal Rotation 4+ Good+ Right Flexion (L2) 4- Good- Extension (S1) 4- Good- Abduction 4- Good- Adduction 4 Good External Rotation 4- Good- Internal Rotation 4- Good- PT-OP-Q Treatments Start: 09/05/17 17:25 Freq: Status: Active Protocol: Document 10/03/17 16:00 DCW (Rec: 10/03/17 16:44 DCW [id number]) Cardio Equipment Recumbent Bicycle Duration (Minutes) 6 Resistance 3 Seat Position 6 Gym Equipment Shuttle Recovery Unilateral Squats Resistance 50# Shuttle Recovery Platform Stable Bilateral Squats Resistance 100# Shuttle Recovery Platform Stable Therapeutic Exercises Standing Exercises 1 Standing Exercise Name Lunges onto BOSU Side bilateral Equipment Used BOSU Other Exercises 2 Other Exercise Name Resisted Forward/Retro-walking Side bilateral Resistance Green Equipment Used T-Band 1 Other Exercise Name Resisted Side-stepping Side bilateral Resistance Green Equipment Used T-Band Manual Therapy Treatment Soft Tissue Mobilization 3 Body Location Piriformis Mobilization Type Myofascial Release Sustained Pressure Trigger Point Release Intensity/Depth Moderate Body Position Prone 2 Body Location T/L paraspinals Mobilization Type Myofascial Release Sustained Pressure Trigger Point Release Intensity/Depth Moderate Body Position Prone 1 Body Location Psoas Mobilization Type Cross-Friction Sustained Pressure Intensity/Depth Deep Body Position Hooklying Joint Mobilizations 1 Joint Lumbar Direction P->A Grade III Body Position Prone Manual Traction Lumbar Details Right LE long-axis traction PT-OP-R Modalities Start: 09/05/17 17:25 Freq: Status: Active Protocol: Document 10/03/17 16:00 DCW (Rec: 10/03/17 16:44 DCW [id number]) Hot Pack/Cold Pack Treatment Hot Pack Location Lumbar spine Patient Position Hooklying Treatment Duration (minutes) 10 Patient Tolerance Good PT-OP-T Assessment and Plan Start: 09/05/17 17:25 Freq: Status: Active Protocol: Document 10/03/17 16:00 DCW (Rec: 10/03/17 16:44 DCW [id number]) Physical Therapy Assessment Impairments Impairments Activity Tolerance Functional Activities Functional Mobility Gait Pain Posture ROM Soft Tissue Mobility Strength Tone Goals Five Impairment Muscle Tone Retirement Goal (LTG) Moderate tone in B Psoas, Piriformis, Paraspinals, and QL LTG Duration 10/18/17 Four Impairment Hip ROM Retirement Goal (LTG) R hip flexion to 110? R hip abduction to 45? LTG Duration 10/18/17 Three Impairment Special Tests Short Term Goal (STG) Kaden test negative STG Duration 09/27/17 Retirement Goal (LTG) Pain-free POLLY and SLR tests LTG Duration 10/18/17 Two Impairment Activity Restriction Short Term Goal (STG) Pt to participate in a 2 mile walk with her children STG Duration 09/27/17 Agriculture Teacher Goal (LTG) Pt to report two days of work in a row symptom-free LTG Duration 10/18/17 One Impairment Pt does not have an appropriate HEP Short Term Goal (STG) Pt to be independent and compliant with HEP STG Duration 09/27/17 Assessment Summary Assessment Pt had less burning and tingling with LE traction today. Physical Therapy Plan Frequency and Duration Frequency of Treatment 2x/Week Duration of Treatment 12 weeks Plan of Care Start Date 09/05/17 Plan of Care End Date 11/28/17 Therapeutic Interventions Therapeutic Interventions Aquatic Therapy Gait Training Home Exercise Program Joint Mobilizations Manual Therapy Neuromuscular Re-education Self-Care/Home Management Soft Tissue Mobilization Therapeutic Activities Therapeutic Exercises Modalities Cold Pack/Ice Massage Electric Stimulation Hot Packs Ultrasound Next Visit Focus/Plan Next Note Type Treatment Note Next Visit Plan STM, Strengthening, Pain- control modalities
--- NOTE | 2017-10-10 16:43 | PT.OTN ---
Current Diagnoses Sacrococcygeal disorders, not elsewhere classified (10/10/17) Lumbago with sciatica, right side (10/10/17) Physical Therapy Treatment Note PT-OP-A Visit Information Start: 09/05/17 17:25 Freq: Status: Active Protocol: Document 10/10/17 16:00 DCW (Rec: 10/10/17 16:43 DCW [id number]) Out-Patient Physical Therapy Visit Information Visit Information Visit Type Treatment Note Visit Start Time 16:00 Visit Stop Time 16:50 Total Visit Minutes 50 Visit Number 17 Evaluation Information Evaluation Date 03/16/17 PT-OP-B Current Condition Start: 09/05/17 17:25 Freq: Status: Active Protocol: Document 09/05/17 13:45 DCW (Rec: 09/06/17 10:16 DCW [id number]) Current Condition History of Current Condition Onset Date January, Current Complaints Severe hip and back pain, participation restriction, immobility History of Current Condition Pt evaluated prior to EMR switch, please see pt's chart in Therapy Source for complete history and evaluation. Briefly, pt presented to skilled therapy in early March,, with complaints of severe right hip and low back pain. Testing indicated a right labral tear, later confirmed with MRI. Pt put therapy on hold in an attempt to get surgical treatment for her hip, unfortunately, over the past few months, any clinic she has found willing to perform the surgery will not accept her insurance, and the only clinic that accepts her insurance does not feel comfortable performing the surgery. Pt now returns to skilled therapy with continued right hip pain, and worsening lumbar pain. Prior Treatments and Tests Hip MRI, Lumbar MRI, lumbar x- rays Future Testing and Treatments Planned Pt hopeful for labral repair surgery Treatment Goals Patient/Caregiver Goals I want to feel less pain, I want more mobility, like being able to bend over and pick stuff up. I want to walk without a limp, or get out of bed without grabbing onto a wall because I feel like I'm going to fall over. Mainly, I want to be able to just walk around with my kids. Prior Functional Status Baseline Function- ADL's Independent Baseline Function- Mobility Independent Baseline Function- Work/School Works at [employer] store Current Functional Impairments (Reported) Functional Limitations- Work/School Limited bending and lifting at work Functional Limitations- Recreation/ Unable to take her children Hobbies anywhere that requires walking , such as the [email or web address] festival or the zoo Personal Factors Other Personal Factors That May Effect Depression, Prior Hx drug Therapy/Recovery abuse PT-OP-C Subjective Start: 09/05/17 17:25 Freq: Status: Active Protocol: Document 10/10/17 16:00 DCW (Rec: 10/10/17 16:43 DCW [id number]) OP-PT Subjective Patient Comments Patient Comments Pt received her hip injection yesterday, and despite being really sore at the injection site, she feels like it is already improving, reporting decreased pain intensity, and waking up in pain less often, but still feel like I'm in constant pain. PT-OP-F Manual Assessment Start: 09/05/17 17:25 Freq: Status: Active Protocol: Document 09/05/17 13:45 DCW (Rec: 09/06/17 10:16 DCW [id number]) Manual Assessments Soft Tissue Assessment Soft Tissue Mobility Assessment Severe hypertonia in R psoas, R piriformis, B thoracic and lumbar paraspinals and QL Moderate Hypertonia R quads, R glutes Joint Mobility Assessment Joint Mobility Assessment Restricted R hip mobility, clunk/grinding with passive movement PT-OP-G Mobility & Gait Start: 09/05/17 17:25 Freq: Status: Active Protocol: Document 09/05/17 13:45 DCW (Rec: 09/06/17 10:16 DCW [id number]) OP Gait Assessment Gait Gait Assistance Required: Independent Assistive Devices Assistive Device None Gait Deviations General Gait Pattern Antalgic Flexed Trunk Lateral Trunk Lean Factors Limiting Gait Function Factors Limiting Gait Function Decreased Strength Limited Range of Motion Pain PT-OP-K Range of Motion Start: 09/06/17 10:17 Freq: Status: Active Protocol: Document 09/05/17 13:45 DCW (Rec: 09/06/17 10:19 DCW [id number]) Hip Goniometric Range of Motion Hip Measured in Degrees Right Passive Hip ROM WFL No Testing Position Supine Flexion w/Knee Flexed 90 Abduction 35 PT-OP-L Special Tests Start: 09/05/17 17:25 Freq: Status: Active Protocol: Document 09/05/17 13:45 DCW (Rec: 09/06/17 10:16 DCW [id number]) Special Tests Lumbar Spine Special Tests Kaden Test Results rectus femoris tightness Straight Leg Raise Test Results Left positive ipsilateral Slump Test Results Negative Hip Special Tests Scour Test Test Results Right positive POLLY Test Results Right anterior hip pian PT-OP-M Strength Start: 09/05/17 17:25 Freq: Status: Active Protocol: Document 09/05/17 13:45 DCW (Rec: 09/06/17 10:16 DCW [id number]) Hip Strength Hip Manual Muscle Testing Left Flexion (L2) 4+ Good+ Extension (S1) 4+ Good+ Abduction 4+ Good+ Adduction 4+ Good+ External Rotation 4+ Good+ Internal Rotation 4+ Good+ Right Flexion (L2) 4- Good- Extension (S1) 4- Good- Abduction 4- Good- Adduction 4 Good External Rotation 4- Good- Internal Rotation 4- Good- PT-OP-Q Treatments Start: 09/05/17 17:25 Freq: Status: Active Protocol: Document 10/10/17 16:00 DCW (Rec: 10/10/17 16:43 DCW [id number]) Cardio Equipment Recumbent Bicycle Duration (Minutes) 6 Resistance 3 Seat Position 6 Gym Equipment Cable Column (Body Solid) Hip Adduction Resistance 30# Hip Abduction Resistance 20# Shuttle Recovery Unilateral Squats Resistance 50# Shuttle Recovery Platform Stable Bilateral Squats Resistance 100# Shuttle Recovery Platform Stable Therapeutic Exercises Other Exercises 2 Other Exercise Name Resisted Forward/Retro-walking Side bilateral Resistance Green Equipment Used T-Band 1 Other Exercise Name Resisted Side-stepping Side bilateral Resistance Green Equipment Used T-Band Manual Therapy Treatment Joint Mobilizations 1 Joint Lumbar Direction P->A Grade III Body Position Prone Manual Traction Lumbar Details Right LE long-axis traction PT-OP-R Modalities Start: 09/05/17 17:25 Freq: Status: Active Protocol: Document 10/10/17 16:00 DCW (Rec: 10/10/17 16:43 DCW [id number]) Hot Pack/Cold Pack Treatment Cold Pack Location Anterior/Posterior Hip Patient Position Hooklying Treatment Duration (minutes) 10 Patient Tolerance Good PT-OP-T Assessment and Plan Start: 09/05/17 17:25 Freq: Status: Active Protocol: Document 10/10/17 16:00 DCW (Rec: 10/10/17 16:43 DCW [id number]) Physical Therapy Assessment Impairments Impairments Activity Tolerance Functional Activities Functional Mobility Gait Pain Posture ROM Soft Tissue Mobility Strength Tone Goals Five Impairment Muscle Tone Icu Tech Goal (LTG) Moderate tone in B Psoas, Piriformis, Paraspinals, and QL LTG Duration 10/18/17 Four Impairment Hip ROM Usp Goal (LTG) R hip flexion to 110? R hip abduction to 45? LTG Duration 10/18/17 Three Impairment Special Tests Short Term Goal (STG) Kaden test negative STG Duration 09/27/17 Usp Goal (LTG) Pain-free POLLY and SLR tests LTG Duration 10/18/17 Two Impairment Activity Restriction Short Term Goal (STG) Pt to participate in a 2 mile walk with her children STG Duration 09/27/17 Usp Goal (LTG) Pt to report two days of work in a row symptom-free LTG Duration 10/18/17 One Impairment Pt does not have an appropriate HEP Short Term Goal (STG) Pt to be independent and compliant with HEP STG Duration 09/27/17 Assessment Summary Assessment Decreased manual therapy today secondary to increased soreness from hip injection. Physical Therapy Plan Frequency and Duration Frequency of Treatment 2x/Week Duration of Treatment 12 weeks Plan of Care Start Date 09/05/17 Plan of Care End Date 11/28/17 Therapeutic Interventions Therapeutic Interventions Aquatic Therapy Gait Training Home Exercise Program Joint Mobilizations Manual Therapy Neuromuscular Re-education Self-Care/Home Management Soft Tissue Mobilization Therapeutic Activities Therapeutic Exercises Modalities Cold Pack/Ice Massage Electric Stimulation Hot Packs Ultrasound Next Visit Focus/Plan Next Note Type Treatment Note Next Visit Plan STM, Strengthening, Pain- control modalities
--- NOTE | 2017-10-17 16:55 | PT.OTN ---
Current Diagnoses Sacrococcygeal disorders, not elsewhere classified (10/17/17) Lumbago with sciatica, right side (10/17/17) Physical Therapy Treatment Note PT-OP-A Visit Information Start: 09/05/17 17:25 Freq: Status: Active Protocol: Document 10/17/17 16:00 DCW (Rec: 10/17/17 16:55 DCW [id number]) Out-Patient Physical Therapy Visit Information Visit Information Visit Type Treatment Note Visit Start Time 16:00 Visit Stop Time 17:00 Total Visit Minutes 60 Visit Number 18 Evaluation Information Evaluation Date 03/16/17 PT-OP-B Current Condition Start: 09/05/17 17:25 Freq: Status: Active Protocol: Document 09/05/17 13:45 DCW (Rec: 09/06/17 10:16 DCW [id number]) Current Condition History of Current Condition Onset Date January, Current Complaints Severe hip and back pain, participation restriction, immobility History of Current Condition Pt evaluated prior to EMR switch, please see pt's chart in Therapy Source for complete history and evaluation. Briefly, pt presented to skilled therapy in early March,, with complaints of severe right hip and low back pain. Testing indicated a right labral tear, later confirmed with MRI. Pt put therapy on hold in an attempt to get surgical treatment for her hip, unfortunately, over the past few months, any clinic she has found willing to perform the surgery will not accept her insurance, and the only clinic that accepts her insurance does not feel comfortable performing the surgery. Pt now returns to skilled therapy with continued right hip pain, and worsening lumbar pain. Prior Treatments and Tests Hip MRI, Lumbar MRI, lumbar x- rays Future Testing and Treatments Planned Pt hopeful for labral repair surgery Treatment Goals Patient/Caregiver Goals I want to feel less pain, I want more mobility, like being able to bend over and pick stuff up. I want to walk without a limp, or get out of bed without grabbing onto a wall because I feel like I'm going to fall over. Mainly, I want to be able to just walk around with my kids. 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 Current Functional Impairments (Reported) Functional Limitations- Work/School Limited bending and lifting at work Functional Limitations- Recreation/ Unable to take her children Hobbies anywhere that requires walking , such as the [employer] festival or the zoo Personal Factors Other Personal Factors That May Effect Depression, Prior Hx drug Therapy/Recovery abuse PT-OP-C Subjective Start: 09/05/17 17:25 Freq: Status: Active Protocol: Document 10/17/17 16:00 DCW (Rec: 10/17/17 16:55 DCW [id number]) OP-PT Subjective Patient Comments Patient Comments I'm sore and I'm tired and my feet hurt and I didn't really want to come today. PT-OP-F Manual Assessment Start: 09/05/17 17:25 Freq: Status: Active Protocol: Document 09/05/17 13:45 DCW (Rec: 09/06/17 10:16 DCW [id number]) Manual Assessments Soft Tissue Assessment Soft Tissue Mobility Assessment Severe hypertonia in R psoas, R piriformis, B thoracic and lumbar paraspinals and QL Moderate Hypertonia R quads, R glutes Joint Mobility Assessment Joint Mobility Assessment Restricted R hip mobility, clunk/grinding with passive movement PT-OP-G Mobility & Gait Start: 09/05/17 17:25 Freq: Status: Active Protocol: Document 09/05/17 13:45 DCW (Rec: 09/06/17 10:16 DCW [id number]) OP Gait Assessment Gait Gait Assistance Required: Independent Assistive Devices Assistive Device None Gait Deviations General Gait Pattern Antalgic Flexed Trunk Lateral Trunk Lean Factors Limiting Gait Function Factors Limiting Gait Function Decreased Strength Limited Range of Motion Pain PT-OP-K Range of Motion Start: 09/06/17 10:17 Freq: Status: Active Protocol: Document 09/05/17 13:45 DCW (Rec: 09/06/17 10:19 DCW [id number]) Hip Goniometric Range of Motion Hip Measured in Degrees Right Passive Hip ROM WFL No Testing Position Supine Flexion w/Knee Flexed 90 Abduction 35 PT-OP-L Special Tests Start: 09/05/17 17:25 Freq: Status: Active Protocol: Document 09/05/17 13:45 DCW (Rec: 09/06/17 10:16 DCW [id number]) Special Tests Lumbar Spine Special Tests Kaden Test Results rectus femoris tightness Straight Leg Raise Test Results Left positive ipsilateral Slump Test Results Negative Hip Special Tests Scour Test Test Results Right positive POLLY Test Results Right anterior hip pian PT-OP-M Strength Start: 09/05/17 17:25 Freq: Status: Active Protocol: Document 09/05/17 13:45 DCW (Rec: 09/06/17 10:16 DCW [id number]) Hip Strength Hip Manual Muscle Testing Left Flexion (L2) 4+ Good+ Extension (S1) 4+ Good+ Abduction 4+ Good+ Adduction 4+ Good+ External Rotation 4+ Good+ Internal Rotation 4+ Good+ Right Flexion (L2) 4- Good- Extension (S1) 4- Good- Abduction 4- Good- Adduction 4 Good External Rotation 4- Good- Internal Rotation 4- Good- PT-OP-Q Treatments Start: 09/05/17 17:25 Freq: Status: Active Protocol: Document 10/17/17 16:00 DCW (Rec: 10/17/17 16:55 DCW [id number]) Cardio Equipment Recumbent Bicycle Duration (Minutes) 6 Resistance 5 Seat Position 5 Gym Equipment Shuttle Recovery Unilateral Squats Resistance 62# Shuttle Recovery Platform Stable Bilateral Squats Resistance 125# Shuttle Recovery Platform Stable Therapeutic Exercises Standing Exercises 1 Standing Exercise Name Lunges onto BOSU Side bilateral Equipment Used BOSU Other Exercises 2 Other Exercise Name Resisted Forward/Retro-walking Side bilateral Resistance Green Equipment Used T-Band 1 Other Exercise Name Resisted Side-stepping Side bilateral Resistance Green Equipment Used T-Band Manual Therapy Treatment Soft Tissue Mobilization 3 Body Location Piriformis Mobilization Type Myofascial Release Sustained Pressure Trigger Point Release Intensity/Depth Moderate Body Position Prone 2 Body Location T/L paraspinals Mobilization Type Myofascial Release Sustained Pressure Trigger Point Release Intensity/Depth Moderate Body Position Prone 1 Body Location Psoas Mobilization Type Cross-Friction Sustained Pressure Intensity/Depth Deep Body Position Hooklying Joint Mobilizations 1 Joint Lumbar Direction P->A Grade III Body Position Prone Manual Traction Lumbar Details Right LE long-axis traction PT-OP-R Modalities Start: 09/05/17 17:25 Freq: Status: Active Protocol: Document 10/17/17 16:00 DCW (Rec: 10/17/17 16:55 DCW [id number]) Electric Stimulation Electric Stimulation Interferential Current (IFC) Body Location Low Back Duration (Minutes) 15 Patient Position Hooklying Combined With Heat/Cold Hot Pack PT-OP-T Assessment and Plan Start: 09/05/17 17:25 Freq: Status: Active Protocol: Document 10/17/17 16:00 DCW (Rec: 10/17/17 16:55 DCW [id number]) Physical Therapy Assessment Impairments Impairments Activity Tolerance Functional Activities Functional Mobility Gait Pain Posture ROM Soft Tissue Mobility Strength Tone Goals Five Impairment Muscle Tone Nursing Home Goal (LTG) Moderate tone in B Psoas, Piriformis, Paraspinals, and QL LTG Duration 10/18/17 Four Impairment Hip ROM Nursing Home Goal (LTG) R hip flexion to 110? R hip abduction to 45? LTG Duration 10/18/17 Three Impairment Special Tests Short Term Goal (STG) Kaden test negative STG Duration 09/27/17 Proposal Writer Goal (LTG) Pain-free POLLY and SLR tests LTG Duration 10/18/17 Two Impairment Activity Restriction Short Term Goal (STG) Pt to participate in a 2 mile walk with her children STG Duration 09/27/17 Nursing Home Goal (LTG) Pt to report two days of work in a row symptom-free LTG Duration 10/18/17 One Impairment Pt does not have an appropriate HEP Short Term Goal (STG) Pt to be independent and compliant with HEP STG Duration 09/27/17 Assessment Summary Assessment Pt tolerated treatment well today, no new complaints, appears to be making mild progress following her injection last week. Physical Therapy Plan Frequency and Duration Frequency of Treatment 2x/Week Duration of Treatment 12 weeks Plan of Care Start Date 09/05/17 Plan of Care End Date 11/28/17 Therapeutic Interventions Therapeutic Interventions Aquatic Therapy Gait Training Home Exercise Program Joint Mobilizations Manual Therapy Neuromuscular Re-education Self-Care/Home Management Soft Tissue Mobilization Therapeutic Activities Therapeutic Exercises Modalities Cold Pack/Ice Massage Electric Stimulation Hot Packs Ultrasound Next Visit Focus/Plan Next Note Type Treatment Note Next Visit Plan STM, Strengthening, Pain- control modalities
--- NOTE | 2018-01-30 10:58 | PT.OPDS ---
Current Diagnoses Sacrococcygeal disorders, not elsewhere classified (10/17/17) Lumbago with sciatica, right side (10/17/17) Provider Visit Care Team Role Provider Type Sheri Weinstein DO Family Provider Physician Primary Care Provider Specialty: Family Practice Address: [address] [place] [address], [id number] Email: [email or web address] Matt Espinoza MD Attending Provider Physician Specialty: Orthopedics Address: [address] [place] [address], [id number] Email: Visit Number Visit Number 18 Discharge Summary PT-OP-B Current Condition Start: 09/05/17 17:25 Freq: Status: Active Protocol: Document 09/05/17 13:45 DCW (Rec: 09/06/17 10:16 DCW [id number]) Current Condition History of Current Condition Onset Date January, Current Complaints Severe hip and back pain, participation restriction, immobility History of Current Condition Pt evaluated prior to EMR switch, please see pt's chart in Therapy Source for complete history and evaluation. Briefly, pt presented to skilled therapy in early March,, with complaints of severe right hip and low back pain. Testing indicated a right labral tear, later confirmed with MRI. Pt put therapy on hold in an attempt to get surgical treatment for her hip, unfortunately, over the past few months, any clinic she has found willing to perform the surgery will not accept her insurance, and the only clinic that accepts her insurance does not feel comfortable performing the surgery. Pt now returns to skilled therapy with continued right hip pain, and worsening lumbar pain. Prior Treatments and Tests Hip MRI, Lumbar MRI, lumbar x- rays Future Testing and Treatments Planned Pt hopeful for labral repair surgery Treatment Goals Patient/Caregiver Goals I want to feel less pain, I want more mobility, like being able to bend over and pick stuff up. I want to walk without a limp, or get out of bed without grabbing onto a wall because I feel like I'm going to fall over. Mainly, I want to be able to just walk around with my kids. 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 Current Functional Impairments (Reported) Functional Limitations- Work/School Limited bending and lifting at work Functional Limitations- Recreation/ Unable to take her children Hobbies anywhere that requires walking , such as the [employer] festival or the zoo Personal Factors Other Personal Factors That May Effect Depression, Prior Hx drug Therapy/Recovery abuse PT-OP-C Subjective Start: 09/05/17 17:25 Freq: Status: Active Protocol: Document 10/17/17 16:00 DCW (Rec: 10/17/17 16:55 DCW [id number]) OP-PT Subjective Patient Comments Patient Comments I'm sore and I'm tired and my feet hurt and I didn't really want to come today. PT-OP-F Manual Assessment Start: 09/05/17 17:25 Freq: Status: Active Protocol: Document 09/05/17 13:45 DCW (Rec: 09/06/17 10:16 DCW [id number]) Manual Assessments Soft Tissue Assessment Soft Tissue Mobility Assessment Severe hypertonia in R psoas, R piriformis, B thoracic and lumbar paraspinals and QL Moderate Hypertonia R quads, R glutes Joint Mobility Assessment Joint Mobility Assessment Restricted R hip mobility, clunk/grinding with passive movement PT-OP-G Mobility & Gait Start: 09/05/17 17:25 Freq: Status: Active Protocol: Document 09/05/17 13:45 DCW (Rec: 09/06/17 10:16 DCW [id number]) OP Gait Assessment Gait Gait Assistance Required: Independent Assistive Devices Assistive Device None Gait Deviations General Gait Pattern Antalgic Flexed Trunk Lateral Trunk Lean Factors Limiting Gait Function Factors Limiting Gait Function Decreased Strength Limited Range of Motion Pain PT-OP-K Range of Motion Start: 09/06/17 10:17 Freq: Status: Active Protocol: Document 09/05/17 13:45 DCW (Rec: 09/06/17 10:19 DCW [id number]) Hip Goniometric Range of Motion Hip Measured in Degrees Right Passive Hip ROM WFL No Testing Position Supine Flexion w/Knee Flexed 90 Abduction 35 PT-OP-L Special Tests Start: 09/05/17 17:25 Freq: Status: Active Protocol: Document 09/05/17 13:45 DCW (Rec: 09/06/17 10:16 [facility] [id number]) Special Tests Lumbar Spine Special Tests Kaden Test Results rectus femoris tightness Straight Leg Raise Test Results Left positive ipsilateral Slump Test Results Negative Hip Special Tests Scour Test Test Results Right positive POLLY Test Results Right anterior hip pian PT-OP-M Strength Start: 09/05/17 17:25 Freq: Status: Active Protocol: Document 09/05/17 13:45 DCW (Rec: 09/06/17 10:16 [facility] [id number]) Hip Strength Hip Manual Muscle Testing Left Flexion (L2) 4+ Good+ Extension (S1) 4+ Good+ Abduction 4+ Good+ Adduction 4+ Good+ External Rotation 4+ Good+ Internal Rotation 4+ Good+ Right Flexion (L2) 4- Good- Extension (S1) 4- Good- Abduction 4- Good- Adduction 4 Good External Rotation 4- Good- Internal Rotation 4- Good- PT-OP-T Assessment and Plan Start: 09/05/17 17:25 Freq: Status: Active Protocol: Document 01/30/18 10:54 DCW (Rec: 01/30/18 10:58 [facility] [id number]) Physical Therapy Assessment Impairments Impairments Activity Tolerance Functional Activities Functional Mobility Gait Pain Posture ROM Soft Tissue Mobility Strength Tone Goals Five Impairment Muscle Tone Fan Blade Aligner Goal (LTG) Moderate tone in B Psoas, Piriformis, Paraspinals, and QL LTG Duration 10/18/17 Four Impairment Hip ROM Fan Blade Aligner Goal (LTG) R hip flexion to 110? R hip abduction to 45? LTG Duration 10/18/17 Three Impairment Special Tests Short Term Goal (STG) Kaden test negative STG Duration 09/27/17 Fan Blade Aligner Goal (LTG) Pain-free POLLY and SLR tests LTG Duration 10/18/17 Two Impairment Activity Restriction Short Term Goal (STG) Pt to participate in a 2 mile walk with her children STG Duration 09/27/17 Senior Care Goal (LTG) Pt to report two days of work in a row symptom-free LTG Duration 10/18/17 One Impairment Pt does not have an appropriate HEP Short Term Goal (STG) Pt to be independent and compliant with HEP STG Duration 09/27/17 Assessment Summary Assessment Pt has not been seen in more than three months after requesting a PT hold to discuss options with her surgeon. Pt will be discharged from skilled therapy at this time, and will require a new referral in order to return. Physical Therapy Plan Frequency and Duration Frequency of Treatment 2x/Week Duration of Treatment 12 weeks Plan of Care Start Date 09/05/17 Plan of Care End Date 11/28/17 Therapeutic Interventions Therapeutic Interventions Aquatic Therapy Gait Training Home Exercise Program Joint Mobilizations Manual Therapy Neuromuscular Re-education Self-Care/Home Management Soft Tissue Mobilization Therapeutic Activities Therapeutic Exercises Modalities Cold Pack/Ice Massage Electric Stimulation Hot Packs Ultrasound Discharge Physical Therapy Discharge Reasons No Longer Attending PT
== END 2018-02-11 15:49 ==
LOC: PHYS 16:00
PROVIDERS: Family Provider Family Medicine; PCP Family Medicine; Visit Provider Physical Medicine & Rehabilitation
DX: M53.3 Sacrococcygeal disorders, not elsewhere classified (principal); M54.41 Lumbago with sciatica, right side
CPT/HCPCS: 97010; 97014; 97110; 97140; 97535; G0283

== ENCOUNTER 2018-05-07 12:10 | Emergency (ER) | payer OTHER, MEDICAID, SELFPAY ==
[2018-05-07 12:17] VITALS: BP 135/81; PULSE 84; RESP 18; TEMP 36.8; O2SAT 97; BMI 38.2
--- NOTE | 2018-05-07 12:42 | ED.URI ---
HPI - URI/Sore Throat <MARIELA Almonte - Last Filed: 05/07/18 21:21> General Chief Complaint: Upper Respiratory Symptoms Stated Complaint: THROAT IS ON FIRE SWELLING/THROAT Time Seen by Provider: 05/07/18 12:34 Source: patient Mode of arrival: ambulatory Limitations: no limitations History of Present Illness HPI Narrative: 27-year-old healthy female that is a nonsmoker here for complaint of having sore throat cough for the past couple of days. She also reports having a generalized body aches during the same time frame. No known fever. She denies any nasal congestion. Positive p.o. intake. No nausea or vomiting. she reports that her children have had similar symptoms and also coworkers. She states she has had a dry cough. No other concerns or complaints. Related Data Previous Rx's Medication Instructions Recorded albuterol sulfate HFA 90 2 inhalation INHALATION QID #1 06/11/17 mcg/actuation aerosol inhaler inhalation hydrocodone 5 mg-acetaminophen 325 1 tab PO Q6HP PRN #30 tab 08/22/ mg tablet cyclobenzaprine 10 mg tablet 10 mg PO Q8HP PRN #30 tab 09/03/17 tramadol 50 mg tablet 50 mg PO Q4-6H PRN #20 tab 09/03/17 Allergies Allergy/AdvReac Type Severity Reaction Status Date / Time sumatriptan [From IMITREX] AdvReac Intermediate somnolence, Verified 05/07/18 12:17 nausea, vertigo, visual disturbances Review of Systems <MARIELA Almonte - Last Filed: 05/07/18 21:21> Constitutional Denies chills, Denies fever(s), Denies lethargy and Denies weakness Eyes Denies change in vision, Denies eye discharge, Denies irritation and Denies loss of vision ENT Ears, Nose, Mouth, and Throat: Reports sore throat and Denies throat swelling Cardiovascular Denies chest pain, Denies irregular heart rhythm, Denies lightheadedness, Denies palpitations and Denies orthopnea Respiratory Reports cough and Denies wheezing Gastrointestinal Gastrointestinal: Denies abdominal pain, Denies change in bowel habits, Denies diarrhea, Denies nausea and Denies vomiting Genitourinary Denies hematuria, Denies flank pain, Denies urinary incontinence and Denies urinary urgency Integumentary/Breasts Denies pruritus, Denies erythema, Denies rash and Denies wounds Neurologic Denies loss of vision and Denies weakness Endocrine Denies palpitations Hematologic/Lymphatic Denies easy bruising Allergic/Immunologic Denies urticaria, Denies throat swelling and Denies wheezing PFSH <MARIELA Almonte - Last Filed: 05/07/18 21:21> Social History Smoking Status: Current every day smoker Exam <MARIELA Almonte - Last Filed: 05/07/18 21:21> Initial Vital Signs Initial Vital Signs: Vital Signs Temperature 98.3 F 05/07/18 12:17 Pulse Rate 84 05/07/18 12:17 Respiratory Rate 18 05/07/18 12:17 Blood Pressure 135/81 05/07/18 12:17 Pulse Oximetry 97 05/07/18 12:17 Const General: cooperative and well developed Nutritional Appearance: well nourished Orientation: alert, awake, oriented x3 and not confused HENVT Mouth: oral mucosae normal and moist mucous membranes Throat: posterior oropharynx normal Eyes Conjunctivae: conjunctivae normal Sclera: sclerae normal Pupils: PERRL EOM: EOM intact bilaterally Resp Effort & Inspection: normal respiratory effort, able to speak in complete sentences, no respiratory distress and no use of accessory muscles Auscultation: clear to auscultation bilaterally, no rales, no rhonchi and no wheezes Cardio Rate: regular rate Rhythm: regular rhythm Heart Sounds: no click, no gallops, no murmurs and no rubs Pulses: normal peripheral pulses Skin General: no rashes or lesions noted, No jaundice and No petechiae Neuro General: alert, oriented x3, gait normal and no focal motor deficits Speech: speech normal <Rina Byrd DO - Last Filed: 05/10/18 07:17> Initial Vital Signs Initial Vital Signs: Vital Signs Temperature 98.3 F 05/07/18 12:17 Pulse Rate 84 05/07/18 12:17 Respiratory Rate 18 05/07/18 12:17 Blood Pressure 135/81 05/07/18 12:17 Pulse Oximetry 97 05/07/18 12:17 Course <MARIELA Almonte - Last Filed: 05/07/18 21:21> Orders Ordered: ED Orders 05/07/18 12:15 Influenza A and B by PCR Rapid Stat Vital Signs - 8 hr 05/07/18 13:52 Pulse Rate 79 Respiratory Rate 20 Blood Pressure [Left Arm] 134/76 Pulse Oximetry 97 <Rina Byrd DO - Last Filed: 05/10/18 07:17> Orders Ordered: ED Orders 05/07/18 12:15 Influenza A and B by PCR Rapid Stat Vital Signs - 8 hr 05/07/18 13:52 Pulse Rate 79 Respiratory Rate 20 Blood Pressure [Left Arm] 134/76 Pulse Oximetry 97 MDM - URI/Sore Throat <MARIELA Almonte - Last Filed: 05/07/18 21:21> Lab Data Lab Results 05/07/18 Range/Units 12:15 Influenza A & B (PCR) Negative (Negative) Point of Care Testing Rapid Strep A Negative MDM Narrative Medical decision making narrative: Influenza swab was obtained and was negative. Strep test was also obtained and was also negative. Signs and symptoms presents as viral upper respiratory infection. Plenty of fluids and rest. [id number] Tylenol or Motrin as needed for any discomfort or fevers. Saline irrigation nasal passages to help with any nasal congestion. Salt water gargles and throat lozenges to help with sore throat. follow-up with primary care provider return emergency room for worsening symptoms. <Rina Byrd DO - Last Filed: 05/10/18 07:17> Lab Data Lab Results 05/07/18 Range/Units 12:15 Influenza A & B (PCR) Negative (Negative) Point of Care Testing Rapid Strep A Negative Discharge Plan Departure Patient Disposition: Home Clinical Impression: Viral URI Discharge Date/Time: 05/07/18 13:59 Interventions: ED Discharge Assessment Last Done: 05/07/18 13:58 Instructions: DI for Viral Upper Respiratory Infection -- Adult Prescriptions: No Action albuterol sulfate [Proventil HFA] 90 mcg/actuation HFA aerosol inhaler 2 inhalation INHALATION QID Qty: 1 RF: 3 hydrocodone-acetaminophen 5-325 mg tablet 1 tab PO Q6HP PRN (Reason: pain) Qty: 30 RF: 0 cyclobenzaprine 10 mg tablet 10 mg PO Q8HP PRN (Reason: muscle spasm) Qty: 30 RF: 0 tramadol 50 mg tablet 50 mg PO Q4-6H PRN (Reason: pain) Qty: 20 RF: 0 Referrals: Sheri Weinstein DO [Primary Care Provider] - Stand Alone Forms: Work Release Note, Work/School Release <Rina Byrd DO - Last Filed: 05/10/18 07:17> Cosign ED Attending Cosignature Attestation: I was immediately available in the department for consultation. This documentation has been reviewed and I agree with assessment and plan. Supervised by Rina Byrd DO
[2018-05-07 13:38] LABS: Influenza A and B by PCR Rapid Negative (Negative)
[2018-05-07 13:52] VITALS: BP 134/76; PULSE 79; RESP 20; O2SAT 97
== END 2018-05-07 13:59 | disposition home or self-care (01) ==
PROVIDERS: Emergency Medicine; Emergency Provider Nurse Practitioner Family; Family Provider Family Medicine; PCP Family Medicine
DX: J06.9 Acute upper respiratory infection, unspecified (principal)
CPT/HCPCS: 87400; 87880; 99282

== ENCOUNTER 2018-08-03 16:54 | Emergency (ER) | payer OTHER, MEDICAID, SELFPAY ==
[2018-08-03 16:57] VITALS: BP 126/73; PULSE 76; RESP 16; TEMP 36.2; O2SAT 99; BMI 83.6
--- NOTE | 2018-08-03 18:26 | ED_ITS ---
HPI - Headache General Chief Complaint: Headache Stated Complaint: MIGRAINE SINCE 11AM Time Seen by Provider: 08/03/18 18:26 Source: patient Mode of arrival: ambulatory Limitations: no limitations History of Present Illness HPI Narrative: Patient is a 28-year-old female. States she has a history of migraines. States she only gets less than 6 migraines a year. Is not currently any migraine medications. Has tried sumatriptan in the past but has had reactions to this. Stated that earlier this morning she had a gradual onset of what she states is her normal migraine. Tried several doses of aspirin at home without any improvement. Tried several doses of caffeine at home without any improvement. Came into the emergency department for evaluation. She states that between the time that she arrived here in the emergency department and my evaluation her headache has greatly improved. She reports no other associated symptoms. Related Data Previous Rx's Medication Instructions Recorded albuterol sulfate HFA 90 2 inhalation INHALATION QID #1 06/11/17 mcg/actuation aerosol inhaler inhalation hydrocodone 5 mg-acetaminophen 325 1 tab PO Q6HP PRN #30 tab 08/22/17 mg tablet cyclobenzaprine 10 mg tablet 10 mg PO Q8HP PRN #30 tab 09/03/17 tramadol 50 mg tablet 50 mg PO Q4-6H PRN #20 tab 09/03/17 awgvdoqyae-hppufysxtmozl-npgk 1 cap PO Q4-6H PRN #14 cap 08/03/18 [Fioricet] Allergies Allergy/AdvReac Type Severity Reaction Status Date / Time sumatriptan [From IMITREX] AdvReac Intermediate somnolence, Verified 08/03/18 17:01 nausea, vertigo, visual disturbances Review of Systems Constitutional Denies fever(s) and Reports headache(s) ENT Ears, Nose, Mouth, and Throat: Reports headache(s) Cardiovascular Denies chest pain and Denies dyspnea Respiratory Denies dyspnea Gastrointestinal Gastrointestinal: Denies abdominal pain Genitourinary Denies dysuria Musculoskeletal Denies myalgias and Denies arthralgias Integumentary/Breasts Denies rash Neurologic Denies behavioral changes and Reports headache(s) Psychiatric Denies behavioral changes Hematologic/Lymphatic Denies easy bleeding and Denies easy bruising PFSH Medical History Migraines (Acute) Social History Smoking Status: Current every day smoker Social History Smoking Status: Current every day smoker Exam Initial Vital Signs Initial Vital Signs: Vital Signs Temperature 97.1 F L 08/03/18 16:57 Pulse Rate 76 08/03/18 16:57 Respiratory Rate 16 08/03/18 16:57 Blood Pressure 126/73 08/03/18 16:57 Pulse Oximetry 99 08/03/18 16:57 Const General: cooperative, healthy appearing, comfortable, well developed and well groomed Orientation: alert, awake and oriented x3 HENMT Head: normal to inspection and normocephalic Eyes General: appearance normal, both eyes and all related structures Resp Effort & Inspection: normal respiratory effort Cardio Rate: regular rate GI Inspection: non-distended Skin Lesions: no lesions Rashes: no rashes Neuro General: alert and awake Cognition: normal cognition Speech: speech normal Extrem General: No edema Psych Appearance: grossly normal and well kempt Scores GCS Brea coma scale eye opening: Spontaneous [place] coma scale verbal response: Orientated Bre[place] coma scale motor response: Obey commands Brea coma scale total score: 15 Course Vital Signs - 8 hr 08/03/18 16:57 Temperature 97.1 F L Pulse Rate 76 Respiratory Rate 16 Blood Pressure 126/73 Pulse Oximetry 99 MDM - Headache MDM Narrative Medical decision making narrative: Patient denies they offer for any medicines here in the emergency department. Low suspicion for intracranial hemorrhage. Will send home with a prescription for Fioricet. Patient was given return precautions and follow-up instructions. She expressed understanding and agreement plan for an Discharge Plan Departure Patient Disposition: Home Clinical Impression: Migraine Qualifiers: Migraine type: unspecified Status migrainosus presence: without status migrainosus Intractability: not intractable Qualified Code(s): G43.909 - Migraine, unspecified, not intractable, without status migrainosus Discharge Date/Time: 08/03/18 18:50 Interventions: ED Discharge Assessment Last Done: 08/03/18 18:50 Instructions: DI for Migraine Activity Restrictions/Additional Instructions: Take the medication as directed. Contact your Primary care provider on sunday for a follow up. Return to the ER for any new or worsening symptoms. Prescriptions: New emxieqxfks-froknirordwuk-xldz [Fioricet] 50-300-40 mg capsule 1 cap PO Q4-6H PRN (Reason: pain) Qty: 14 RF: 0 No Action albuterol sulfate [Proventil HFA] 90 mcg/actuation HFA aerosol inhaler 2 inhalation INHALATION QID Qty: 1 RF: 3 hydrocodone-acetaminophen 5-325 mg tablet 1 tab PO Q6HP PRN (Reason: pain) Qty: 30 RF: 0 cyclobenzaprine 10 mg tablet 10 mg PO Q8HP PRN (Reason: muscle spasm) Qty: 30 RF: 0 tramadol 50 mg tablet 50 mg PO Q4-6H PRN (Reason: pain) Qty: 20 RF: 0 Referrals: Sheri Weinstein DO [Primary Care Provider] -
[2018-08-03 18:46] VITALS: BP 122/58; PULSE 58; RESP 16; O2SAT 99
--- NOTE | 2018-08-03 18:47 | PC.NURSE ---
Patient reports slightly worse than typical migraines. Frontal headache radiating towards back of head. Patient no relief with meds at home
== END 2018-08-03 18:50 | disposition home or self-care (01) ==
PROVIDERS: Emergency Provider Emergency Medicine; PCP Family Medicine
DX: G43.909 Migraine, unspecified, not intractable, without status migrainosus (principal)
CPT/HCPCS: 99282; 99283

== ENCOUNTER 2018-12-14 21:49 | Emergency (ER) | payer OTHER, MEDICAID, SELFPAY ==
[2018-12-14 21:57] VITALS: BP 134/94; PULSE 86; RESP 18; TEMP 36.9; O2SAT 97; BMI 40.3
--- NOTE | 2018-12-14 21:57 | DI.RAD.S_ITS ---
PROCEDURE: XR CHEST 2V INDICATIONS: SOB TECHNIQUE: 2 views of the chest were acquired. COMPARISON: [facility], CR, XR CHEST 2V, 08/23/2017, 15:01. FINDINGS: Surgical changes and devices: None. Lungs and pleura: Lungs are clear. No pleural effusions or pneumothorax. Mediastinum: Mediastinal contours are normal. Heart size is normal. Bones and chest wall: No suspicious bony abnormalities. Soft tissues appear unremarkable. IMPRESSION: Stable radiographic evaluation of the chest without acute cardiopulmonary abnormalities or focal airspace disease. Dictated by: Jossue Friedman M.D. on 12/14/2018 at 22:12 Approved by: Jossue Friedman M.D. on 12/14/2018 at 22:13
--- NOTE | 2018-12-14 22:20 | ED.URI ---
HPI - URI/Sore Throat General Chief Complaint: Upper Respiratory Symptoms Stated Complaint: dont feel good,throat is on fire,sob Time Seen by Provider: 12/14/18 21:51 Source: patient Mode of arrival: Ambulatory Limitations: no limitations History of Present Illness HPI Narrative: 28-year-old female daily smoker presents with a chief complaint of about 1 hour of severe sore throat, difficulty swallowing and generally feeling unwell. She has had for the past few days some runny nose has felt achy. She also complains that her asthma has been flaring up and she started feeling short of breath about 1 hour ago. She denies, as stated no fever. She has had no productive cough. She has been using various oypu-yae-acznidn cough and cold medications over the past few days without much in the way of relief MD Complaint: sore throat Onset (ago): hour(s) Duration: constant Severity: moderate Relieving factors: nothing Exacerbating factors: swallowing Able to tolerate fluids by mouth: Yes Associated symptoms: rhinorrhea, nasal congestion, sore throat and cough Related Data Previous Rx's Medication Instructions Recorded albuterol sulfate 90 mcg/actuation 2 inhalation INHALATION QID #1 06/11/17 aerosol inhaler inhalation ncdfyffejb-mrqqbrluxcnyp-nfzr 1 cap PO Q4-6H PRN #14 cap 08/03/18 [Fioricet] hydroxyzine pamoate 25 mg capsule 25 mg PO TID PRN #30 cap 11/01/18 sertraline 25 mg tablet 25 mg PO DAILY #60 tab 11/01/18 Allergies Allergy/AdvReac Type Severity Reaction Status Date / Time sumatriptan [From IMITREX] AdvReac Intermediate somnolence, Verified 11/01/18 15:57 nausea, vertigo, visual disturbances Review of Systems Constitutional Constitutional: Denies chills, Denies fatigue, Denies fever(s), Denies frequent falls, Denies lethargy and Denies weakness Eyes Eyes: Denies change in vision, Denies eye discharge, Denies irritation and Denies loss of vision ENT Ears, Nose, Mouth, and Throat: Denies change in voice, Denies dizziness, Reports nasal congestion, Reports nasal discharge, Denies neck pain, Reports sore throat and Denies throat swelling Cardiovascular Cardiovascular: Denies chest pain, Denies irregular heart rhythm, Denies lightheadedness, Denies palpitations, Denies dyspnea, Denies dyspnea on exertion and Denies orthopnea Respiratory Respiratory: Reports cough, Denies dyspnea, Denies dyspnea on exertion and Denies wheezing Gastrointestinal Gastrointestinal: Denies abdominal pain, Denies change in bowel habits, Denies diarrhea, Denies nausea and Denies vomiting Genitourinary Genitourinary: Denies hematuria, Denies flank pain, Denies urinary incontinence and Denies urinary urgency Musculoskeletal Musculoskeletal: Denies back pain, Denies muscle weakness, Denies neck pain, Denies numbness and Denies tingling Integumentary/Breasts Skin/Breast: Denies pruritus, Denies erythema, Denies rash and Denies wounds Neurologic Neurologic: Denies behavioral changes, Denies confusion, Denies dizziness, Denies frequent falls, Denies loss of vision, Denies numbness, Denies tingling and Denies weakness Psychiatric Psychiatric: Denies anxiety, Denies behavioral changes, Denies confusion, Denies depression, Denies homicidal ideation and Denies suicidal ideation Endocrine Endocrine: Denies fatigue, Denies flushing and Denies palpitations Hematologic/Lymphatic Hematologic/Lymphatic: Denies easy bruising Allergic/Immunologic Allergic/Immunologic: Denies urticaria, Denies throat swelling and Denies wheezing Patient History Medical History Migraines (Acute) Social History Smoking Status: Current every day smoker alcohol intake frequency: 0-2 drinks per day Substance Use Type: does not use Exam Narrative Exam Narrative: GENERAL: [28] year old patient appears stated age. Well-nourished, well-developed patient, in mild distress. HEAD: Atraumatic. Normocephalic. EYES: Pupils equal round and reactive. Extraocular motions intact. No scleral icterus. No injection or drainage. ENT: Clear postnasal drip Nose without bleeding, purulent drainage. Throat without erythema, tonsillar hypertrophy or exudate. Airway patent. NECK: Trachea midline. Non tender CARDIOVASCULAR: Regular rate and rhythm without murmurs, gallops, or rubs. RESPIRATORY: Clear to auscultation. Breath sounds equal bilaterally. No wheezes, rales, or rhonchi. GASTROINTESTINAL: Abdomen soft, non-tender, nondistended. EXTREMITIES: No edema or joint tenderness. BACK: Nontender without deformity or crepitance. No flank tenderness. NEURO: AOx3. SKIN: No rash or erythema of visible areas Initial Vital Signs Initial Vital Signs: Vital Signs Temperature 98.4 F 12/14/18 21:57 Pulse Rate 86 12/14/18 21:57 Respiratory Rate 18 12/14/18 21:57 Blood Pressure 134/94 H 12/14/18 21:57 Pulse Oximetry 97 12/14/18 21:57 Course Orders Ordered: ED Orders 12/14/18 21:57 XR chest 2V Stat 12/14/18 22:05 Influenza A and B by PCR Rapid Stat Vital Signs Vital signs: Vital Signs - 8 hr 12/14/18 21:57 12/14/18 23:03 Temperature 98.4 F 98.6 F Pulse Rate 86 76 Respiratory Rate 18 18 Blood Pressure 134/94 H Pulse Oximetry 97 95 MDM - URI/Sore Throat Lab Data Labs: Lab Results 12/14/18 Range/Units 22:05 Influenza A & B (PCR) Negative (Negative) Point of Care Testing Rapid Strep A Negative Imaging Data Chest x-ray: Radiologist's impression: [address] [address] XRay Report Signed Patient: Shayla Porter BMR#: [id number] : 1990Acct:[id number] Age/Sex: 28 / FDate of Service: 12/14/18 Loc: ED Accession Number: [id number] Procedure: XR chest 2V Ordering Provider: Felipe Villalobos D.O. PROCEDURE: XR CHEST 2V INDICATIONS: SOB TECHNIQUE: 2 views of the chest were acquired. COMPARISON: [facility], , XR CHEST 2V, 08/23/2017, 15:01. FINDINGS: Surgical changes and devices: None. Lungs and pleura: Lungs are clear. No pleural effusions or pneumothorax. Mediastinum: Mediastinal contours are normal. Heart size is normal. Bones and chest wall: No suspicious bony abnormalities. Soft tissues appear unremarkable. IMPRESSION: Stable radiographic evaluation of the chest without acute cardiopulmonary abnormalities or focal airspace disease. Dictated by: Jossue Friedman M.D. on 12/14/2018 at 22:12 Approved by: Jossue Friedman M.D. on 12/14/2018 at 22:[address] [address] XRay Report Signed Patient: Shayla Porter BMR#: [id number] : 1990Acct:[id number] Age/Sex: 28 / FDate of Service: 12/14/18 Loc: ED Accession Number: [id number] Procedure: XR chest 2V Ordering Provider: Felipe Villalobos D.O. PROCEDURE: XR CHEST 2V INDICATIONS: SOB TECHNIQUE: 2 views of the chest were acquired. COMPARISON: [facility], , XR CHEST 2V, 08/23/2017, 15:01. FINDINGS: Surgical changes and devices: None. Lungs and pleura: Lungs are clear. No pleural effusions or pneumothorax. Mediastinum: Mediastinal contours are normal. Heart size is normal. Bones and chest wall: No suspicious bony abnormalities. Soft tissues appear unremarkable. IMPRESSION: Stable radiographic evaluation of the chest without acute cardiopulmonary abnormalities or focal airspace disease. Dictated by: Jossue Friedman M.D. on 12/14/2018 at 22:12 Approved by: Jossue Friedman M.D. on 12/14/2018 at 22:13 Discharge Plan Departure Patient Disposition: Home Clinical Impression: Upper respiratory infection, viral Discharge Date/Time: 12/14/18 23:03 Instructions: Common Cold Activity Restrictions/Additional Instructions: *You have been diagnosed with [acute viral upper respiratory infection with pharyngitis] *What to do: *Take medications as directed *Follow up with your primary care provider in 2-3 days, call for an appointment. Let them know you were seen in the Emergency Department and that we ask that you be seen in follow up *Return to ER if you should have any new, worsening or concerning symptoms Prescriptions: No Action albuterol sulfate [Proventil HFA] 90 mcg/actuation HFA aerosol inhaler 2 inhalation INHALATION QID Qty: 1 RF: 3 sertraline 25 mg tablet 25 mg PO DAILY Qty: 60 RF: 0 hydroxyzine pamoate 25 mg capsule 25 mg PO TID PRN (Reason: anxiety) Qty: 30 RF: 0 aekbqwfuhs-cozelcsufjxkr-pudx [Fioricet] 50-300-40 mg capsule 1 cap PO Q4-6H PRN (Reason: pain) Qty: 14 RF: 0 Referrals: Sheri Weinstein DO [Primary Care Provider] -
[2018-12-14 22:30] LABS: Influenza A and B by PCR Rapid Negative (Negative)
[2018-12-14 23:03] VITALS: PULSE 76; RESP 18; TEMP 37; O2SAT 95
== END 2018-12-14 23:03 | disposition home or self-care (01) ==
PROVIDERS: Emergency Provider Emergency Medicine; PCP Family Medicine
DX: J06.9 Acute upper respiratory infection, unspecified (principal); R06.02 Shortness of breath
CPT/HCPCS: 71046; 87502; 87880; 99282; 99283

== ENCOUNTER 2019-03-01 19:28 | Emergency (ER) | payer OTHER, MEDICAID, SELFPAY ==
--- NOTE | 2019-03-01 19:45 | DI.RAD.S_ITS ---
PROCEDURE: XR CHEST 1V INDICATIONS: cough for 2 weeks eval for PNA TECHNIQUE: One view of the chest was acquired. COMPARISON: [facility], CR, XR CHEST 2V, 12/14/2018, 21:55. FINDINGS: Surgical changes and devices: None. Lungs and pleura: Lungs are clear. No pleural effusions or pneumothorax. Mediastinum: Mediastinal contours appear normal. Heart size is normal. Bones and chest wall: No suspicious bony lesions. Overlying soft tissues appear unremarkable. IMPRESSION: No acute pulmonary process. Dictated by: Ana Calderon M.D. on 03/01/2019 at 20:09 Approved by: Ana Calderon M.D. on 03/01/2019 at 20:10
[2019-03-01 20:02] VITALS: BP 125/82; PULSE 68; RESP 18; TEMP 36.2; O2SAT 99; BMI 40.3
--- NOTE | 2019-03-01 20:17 | PC.NURSE ---
reports two weeks of cough with no other compliants. states she tried everything and nothing helps. Tried her kids inhaler for asthma with no change. reports a few puffs of a cigarette calms it down.
--- NOTE | 2019-03-01 20:24 | ED_ITS ---
HPI - URI/Sore Throat General Chief Complaint: Upper Respiratory Symptoms Stated Complaint: Cough for Two Weeks Time Seen by Provider: 03/01/19 19:45 Source: patient Mode of arrival: Ambulatory Limitations: no limitations History of Present Illness HPI Narrative: 28-year-old female here for evaluation of 2 weeks of a cough. Denies any sore throat or headache or fevers. Does have a history of asthma. Has been using her daughter's albuterol inhaler with only minimal improvement. Is a nonproductive cough. No sore throat. No sinus congestion. No recent travel. No chest pain. Related Data Previous Rx's Medication Instructions Recorded albuterol sulfate 90 mcg/actuation 2 inhalation INHALATION QID #1 06/11/17 aerosol inhaler inhalation [id number]-ssevgxykxtlou-[id number] 1 cap PO Q4-6H PRN #14 cap 08/03/18 [Fioricet] hydroxyzine pamoate 25 mg capsule 25 mg PO TID PRN #30 cap 11/01/18 sertraline 25 mg tablet 25 mg PO DAILY #90 tab 01/27/19 albuterol sulfate 2 puff INHALATION Q4-6H PRN #18 03/01/19 gram prednisone 40 mg PO DAILY 2 Days #4 tab 03/01/19 Allergies Allergy/AdvReac Type Severity Reaction Status Date / Time sumatriptan [From IMITREX] AdvReac Intermediate somnolence, Verified 03/01/19 20:02 nausea, vertigo, visual disturbances Review of Systems Constitutional Constitutional: Denies fever(s) and Denies headache(s) ENT Ears, Nose, Mouth, and Throat: Denies headache(s), Denies sinus pressure and Denies sore throat Cardiovascular Cardiovascular: Denies chest pain and Denies dyspnea Respiratory Respiratory: Reports cough and Denies dyspnea Gastrointestinal Gastrointestinal: Denies abdominal pain, Denies nausea and Denies vomiting Genitourinary Genitourinary: Denies dysuria Musculoskeletal Musculoskeletal: Denies myalgias and Denies arthralgias Integumentary/Breasts Skin/Breast: Denies rash Neurologic Neurologic: Denies behavioral changes and Denies headache(s) Psychiatric Psychiatric: Denies behavioral changes Hematologic/Lymphatic Hematologic/Lymphatic: Denies easy bleeding and Denies easy bruising Patient History Medical History 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) Migraines (Acute) Polysubstance abuse (Inactive) endometritis (Inactive) Sinusitis (Inactive) Spontaneous (Inactive) Suicidal ideation (Inactive) Tear of right acetabular labrum (Acute) Surgical History (Updated 12/23/18 @ 15:52 by Sheri Weinstein DO) History of bilateral tubal ligation (Acute ~2017) Social History Smoking Status: Current every day smoker Smoking Status: Current every day smoker alcohol intake frequency: 0-2 drinks per day Substance Use Type: does not use Exam Initial Vital Signs Initial Vital Signs: Vital Signs Temperature 97.1 F L 03/01/19 20:02 Pulse Rate 68 03/01/19 20:02 Respiratory Rate 18 03/01/19 20:02 Blood Pressure 125/82 03/01/19 20:02 Pulse Oximetry 99 03/01/19 20:02 Const General: cooperative, comfortable and well developed Limitations: mental status not altered HENAL Head: normal to inspection and normocephalic Ears: TM normal on the right, EAC's normal and TM abnormal bulging on the left Resp Effort & Inspection: normal respiratory effort Auscultation: wheezes Skin Lesions: no lesions Rashes: no rashes Neuro General: alert, awake and oriented x3 Cognition: normal cognition Speech: speech normal Extrem General: normal to inspection and capillary refill normal Course Orders Ordered: ED Orders 03/01/19 19:45 XR chest 1V Stat Discontinued Medications Albuterol (Ventolin) 2.5 mg INH NOW ONE Stop: 03/01/19 20:25 Last Admin: 03/01/19 20:31 Dose: 2.5 mg Documented by: ASHLEY Prednisone (Deltasone) 40 mg PO NOW ONE Stop: 03/01/19 20:25 Last Admin: 03/01/19 20:31 Dose: 40 mg Documented by: ASHLEY Vital Signs Vital signs: Vital Signs - 8 hr 03/01/19 20:02 03/01/19 20:35 03/01/19 20:51 Temperature 97.1 F L Pulse Rate 68 67 88 Respiratory Rate 18 16 18 Blood Pressure 125/82 121/81 Pulse Oximetry 99 98 100 MDM - URI/Sore Throat Imaging Data Chest x-ray: Radiologist's Impression: [facility] [address] [place] [id number] XRay Report Signed Patient: Shayla Porter BMR#: [id number] : 1990Acct:[id number] Age/Sex: 28 / FDate of Service: 03/01/19 Loc: ED Accession Number: [id number] Procedure: XR chest 1V Ordering Provider: Aneesh Hartman D.O. PROCEDURE: XR CHEST 1V INDICATIONS: cough for 2 weeks eval for PNA TECHNIQUE: One view of the chest was acquired. COMPARISON: [facility], CR, XR CHEST 2V, 12/14/2018, 21:55. FINDINGS: Surgical changes and devices: None. Lungs and pleura: Lungs are clear. No pleural effusions or pneumothorax. Mediastinum: Mediastinal contours appear normal. Heart size is normal. Bones and chest wall: No suspicious bony lesions. Overlying soft tissues appear unremarkable. IMPRESSION: No acute pulmonary process. Dictated by: Ana Calderon M.D. on 03/01/2019 at 20:09 Approved by: Ana Calderon M.D. on 03/01/2019 at 20:10 MDM Narrative Medical decision making narrative: No pneumonia on the chest x-ray. Patient does have diffuse bilateral wheezes however is not tachypneic and not hypoxic. Was given a nebulizer treatment and a dose of steroids here in the ER. No indication for antibiotics. I did refill her albuterol inhaler. Will send her home with 2 more days of steroids. We also discussed antihistamines that she can take at home. She states she does have these at home and it has helped in the past. Suspect that this is a viral URI. Patient was given return precautions and follow-up instructions. She expressed understanding and agreement plan. Discharge Plan Departure Patient Disposition: Home Clinical Impression: Cough, Bilateral wheezing Discharge Date/Time: 03/01/19 20:53 Instructions: Cough Activity Restrictions/Additional Instructions: Take the medications as directed. Contact your primary provider for follow-up. Return to the emergency department for any new or worsening symptoms. The prescriptions were transmitted electronically to the [facility]. Prescriptions: New prednisone 20 mg tablet 40 mg PO DAILY 2 Days Qty: 4 RF: 0 albuterol sulfate 90 mcg/actuation HFA aerosol inhaler 2 puff INHALATION Q4-6H PRN (Reason: shortness of breath or wheezing) Qty: 18 RF: 0 No Action albuterol sulfate [Proventil HFA] 90 mcg/actuation HFA aerosol inhaler 2 inhalation INHALATION QID Qty: 1 RF: 3 sertraline 25 mg tablet 25 mg PO DAILY Qty: 90 RF: 2 hydroxyzine pamoate 25 mg capsule 25 mg PO TID PRN (Reason: anxiety) Qty: 30 RF: 0 qvrqwfhqhz-glybedbvfiaet-bvle [Fioricet] 50-300-40 mg capsule 1 cap PO Q4-6H PRN (Reason: pain) Qty: 14 RF: 0 Referrals: Sheri Weinstein DO [Primary Care Provider] -
[2019-03-01] MEDS: predniSONE 20 MG TABLET 40 MG PO (20:31)
[2019-03-01] MEDS: ALBUTEROL 2.5 MG/3 ML NEB (ADULT) INH (20:31)
[2019-03-01 20:35] VITALS: PULSE 67; RESP 16; O2SAT 98
[2019-03-01 20:51] VITALS: BP 121/81; PULSE 88; RESP 18; O2SAT 100
== END 2019-03-01 20:53 | disposition home or self-care (01) ==
PROVIDERS: Emergency Provider Emergency Medicine; PCP Family Medicine
DX: R05 Cough (principal); R06.2 Wheezing
CPT/HCPCS: 71045; 94640; 99283; J7613

== ENCOUNTER 2019-04-04 21:46 | Emergency (ER) | payer OTHER, MEDICAID, SELFPAY ==
[2019-04-04 21:52] VITALS: BP 111/67; PULSE 74; RESP 18; TEMP 36.1; O2SAT 100
--- NOTE | 2019-04-04 23:09 | ED.URI ---
HPI - URI/Sore Throat General Chief Complaint: Upper Respiratory Symptoms Stated Complaint: COUGH Time Seen by Provider: 04/04/19 22:55 Source: patient Mode of arrival: Ambulatory Limitations: no limitations History of Present Illness HPI Narrative: Patient comes in with complaint of cough. Patient states she has had a month of cough. She has been seen here. She states that she did get prednisone and it did improve her symptoms for about a week and then the sort of reoccurred. She has not had fevers. She occasionally has some nasal congestion but states minimal. She states she does occasionally get wheezy she has an albuterol nebulizer at home which she uses an typically at night she uses the most. She states she does think she has some seasonal allergies and seasonal changes always seem to exacerbate her asthma. She has known asthma. She is not currently on any sort of steroid inhaler. She has had a cough that is been dry and nonproductive. She denies any chest pain except when she is coughing really hard. No pleuritic chest pain. She states she can sometimes hear audible wheezing. She states she did a breathing treatment just before coming to the ED. She has had no other GI or urinary symptoms. No swelling in her extremities. She states she is otherwise healthy. Related Data Previous Rx's Medication Instructions Recorded albuterol sulfate 90 mcg/actuation 2 inhalation INHALATION QID #1 06/11/17 aerosol inhaler inhalation [id number]-zekglbsgulkxx-xqmn 1 cap PO Q4-6H PRN #14 cap 08/03/18 [Fioricet] hydroxyzine pamoate 25 mg capsule 25 mg PO TID PRN #30 cap 11/01/18 sertraline 25 mg tablet 25 mg PO DAILY #90 tab 01/27/19 albuterol sulfate 2 puff INHALATION Q4-6H PRN #18 03/01/19 gram beclomethasone dipropionate [Qvar 1 inhalation INHALATION BID #10.6 04/04/19 RediHaler] gram prednisone See Rx Instructions .ROUTE 04/04/19 .COMPLEX #15 each Allergies Allergy/AdvReac Type Severity Reaction Status Date / Time sumatriptan [From IMITREX] AdvReac Intermediate somnolence, Verified 04/04/19 21:54 nausea, vertigo, visual disturbances Review of Systems Review of Systems ROS Unobtainable: All systems reviewed & are unremarkable except as noted in HPI and below Patient History Medical History 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 HEENT: Atraumatic, pupils are equal round reactive to light, extraocular movements are intact, nares are clear, TMs are clear with no fluid, there is no conjunctival pallor. Throat is clear without any exudates, erythema, tonsillar enlargement or uvular deviation, no paced nasal drip noted. No cobblestoning. HEART: Regular rate and rhythm without murmur, clicks, rubs. LUNGS:Lungs clear to auscultation, no wheezes, rales, crackles, chest moves symmetrically, no tachypnea, no accessory muscle use. Speaks in full sentences. ABD:bowel sounds normal, soft, non-tender, no guarding, rebound, rigidity, no masses noted, no hepatosplenomegaly MSCL: Non-tender, no muscle atrophy, muscles strength 5/5 upper and lower extremities, full range of motion, normal gait NEURO:CN 2-12 intact, sensation normal SKIN: No rash or skin changes. Initial Vital Signs Initial Vital Signs: Vital Signs Temperature 97 F L 04/04/19 21:52 Pulse Rate 74 04/04/19 21:52 Respiratory Rate 18 04/04/19 21:52 Blood Pressure 111/67 04/04/19 21:52 Pulse Oximetry 100 04/04/19 21:52 Course Orders Ordered: Discontinued Medications Prednisone (Deltasone) 60 mg PO NOW ONE Stop: 04/04/19 23:35 Last Admin: 04/04/19 23:44 Dose: 60 mg Documented by: SINDHU Vital Signs Vital signs: Vital Signs - 8 hr 04/04/19 21:52 04/04/19 23:49 Temperature 97 F L Pulse Rate 74 70 Respiratory Rate 18 16 Blood Pressure 111/67 110/72 Pulse Oximetry 100 100 MDM - URI/Sore Throat MDM Narrative Medical decision making narrative: Discussed with patient she has had wheezing and cough but not productive sputum with no infectious type symptoms. Patient actually improved when she was on the steroids and after stopping them after about a week and a half BN more wheezy again. She does have known asthma she only has albuterol at home. She states she has had a steroid inhaler remotely. Discussed doing another course of steroids and adding a steroid inhaler twice daily regardless of symptoms and as patient has had some seasonal type allergies symptoms a oxsg-kwr-dhsfqxg antihistamine. I did ask her to follow up with Dr. rachael machado in the next week for recheck. She deferred chest x-ray today her lungs are clear on exam and I feel this is appropriate. Discharge Plan Departure Patient Disposition: Home Clinical Impression: Cough Discharge Date/Time: 04/04/19 23:49 Instructions: Tips for Controlling Your Asthma Activity Restrictions/Additional Instructions: Follow-up with Dr. Weinstein in the next week for recheck. Take steroids once daily until gone Start steroid inhaler, take this twice daily regardless of symptoms. [facility] [place]. Continue albuterol every 4 hours as needed for wheezing. I would recommend taking and Zyrtec or Claritin once daily [id number] Return to the ER for new or worsening shortness of breath, lightheadedness or passing out, new swelling in your lower extremities, persistent vomiting, new chest pain, or other new or concerning symptoms Prescriptions: New Qvar RediHaler 80 mcg/actuation HFA aerosol breath activated 1 inhalation INHALATION BID Qty: 10.6 RF: 0 prednisone 10 mg tablets,dose pack See Rx Instructions .ROUTE .COMPLEX Qty: 15 RF: 0 No Action albuterol sulfate [Proventil HFA] 90 mcg/actuation HFA aerosol inhaler 2 inhalation INHALATION QID Qty: 1 RF: 3 sertraline 25 mg tablet 25 mg PO DAILY Qty: 90 RF: 2 hydroxyzine pamoate 25 mg capsule 25 mg PO TID PRN (Reason: anxiety) Qty: 30 RF: 0 albuterol sulfate 90 mcg/actuation HFA aerosol inhaler 2 puff INHALATION Q4-6H PRN (Reason: shortness of breath or wheezing) Qty: 18 RF: 0 yeycutvggl-qcccpmyfkpvgg-qrwm [Fioricet] 50-300-40 mg capsule 1 cap PO Q4-6H PRN (Reason: pain) Qty: 14 RF: 0 Referrals: Sheri Weinstein DO [Primary Care Provider] -
[2019-04-04] MEDS: predniSONE 20 MG TABLET 60 MG PO (23:44)
[2019-04-04 23:49] VITALS: BP 110/72; PULSE 70; RESP 16; O2SAT 100
== END 2019-04-04 23:49 | disposition home or self-care (01) ==
PROVIDERS: Emergency Provider Emergency Medicine; PCP Family Medicine
DX: R05 Cough (principal)
CPT/HCPCS: 99283

== ENCOUNTER → 2019-06-27 12:12 | Outpatient (CLI) | payer OTHER, MEDICAID, SELFPAY ==
--- NOTE | 2019-06-27 12:14 | DI.RAD.S_ITS ---
PROCEDURE: XR LUMBAR SPINE MIN 4V INDICATIONS: Low back pain with lower extremity radicular TECHNIQUE: 5 views of the lumbar spine were acquired. COMPARISON: [facility], MR, MR LUMBAR SPINE WO CON, 07/16/2017, 8:38. FINDINGS: Bones: 5 nonrib-bearing vertebrae are present. There is normal bony alignment. No vertebral body compression fractures. No suspicious bony lesions. Minimal irregularity at the L5-S1 disc space. Soft tissues: Overlying bowel gas pattern is normal. No suspicious soft tissue calcifications. Oblique images: No pars defects. IMPRESSION: No acute osseous abnormality. Minimal degenerative disc disease. Dictated by: Georges Rao M.D. on 06/27/2019 at 13:17 Approved by: Georges Rao M.D. on 06/27/2019 at 13:20
== END ==
PROVIDERS: PCP Family Medicine; Referring Provider Physical Medicine & Rehabilitation; Visit Provider Physical Medicine & Rehabilitation
DX: M54.17 Radiculopathy, lumbosacral region (principal); M54.5 Low back pain
CPT/HCPCS: 72110

== ENCOUNTER → 2019-10-07 20:13 | Outpatient (CLI) | payer OTHER, MEDICAID, SELFPAY ==
--- NOTE | 2019-10-07 20:21 | DI.RAD.S_ITS ---
PROCEDURE: XR HIP W PEL IF DONE RT 2V INDICATIONS: tear of right acetabular labrum TECHNIQUE: 2 views of the hip were acquired. COMPARISON: [facility], CR, [id number] W PEL IF PERFORMED, 03/07/2017, 14:51. FINDINGS: Bones: No fractures or dislocations. No suspicious bony lesions. The visualized pelvic ring appears intact. Soft tissues: No suspicious soft tissue calcifications or masses. IMPRESSION: Mild osteoarthritis at the right hip. Minimal such degeneration at the left hip. No fracture found. Dictated by: Ed Grover M.D. on 10/07/2019 at 20:32 Approved by: Ed Grover M.D. on 10/07/2019 at 20:32
== END ==
PROVIDERS: PCP Family Medicine; Referring Provider Physical Medicine & Rehabilitation; Visit Provider Physical Medicine & Rehabilitation
DX: S73.191A Other sprain of right hip, initial encounter (principal); M16.11 Unilateral primary osteoarthritis, right hip
CPT/HCPCS: 73502

== ENCOUNTER 2020-01-31 13:26 | Emergency (ER) | payer OTHER, MEDICAID, SELFPAY ==
[2020-01-31] VITALS (8 sets, daily range): BP systolic 121–128; BP diastolic 59–78; PULSE 43–68; RESP 12–18; TEMP 36.4; O2SAT 98–100; BMI 41.9
--- NOTE | 2020-01-31 14:44 | DI.RAD.S_ITS ---
PROCEDURE: XR ACUTE ABDOMEN SERIES INDICATIONS: Abdominal pain/tightness, crampy TECHNIQUE: One view chest and two views of the abdomen were acquired. COMPARISON: [facility], CR, XR CHEST 1V, 03/01/2019, 19:43. FINDINGS: Surgical changes and devices: None. Chest: Lungs are clear. Heart size is normal. No pleural effusions. No pneumoperitoneum. Abdomen: Bowel gas pattern is normal. No suspicious calcifications. Visualized solid organ contours appear normal. Bones: No suspicious bony lesions. IMPRESSION: There is a nonobstructive bowel gas pattern seen. Clear lungs. Dictated by: Jordan Hays M.D. on 01/31/2020 at 14:45 Approved by: Jordan Hays M.D. on 01/31/2020 at 14:45
--- NOTE | 2020-01-31 14:52 | ED_ITS ---
HPI - Abdominal Pain General Chief Complaint: Abdominal Pain Stated Complaint: right sided pain in stomach Time Seen by Provider: 01/31/20 14:15 Source: patient Mode of arrival: Ambulatory Limitations: no limitations History of Present Illness HPI narrative: 29-year-old female with history of asthma presents with a chief complaint of gradually worsening generalized abdominal pain which has been gradually building over the course of the day. It is generalized and seems to severely intensify without any provocation or palliation. She denies any radiation of her discomfort. She denies fever chills nor nausea, vomiting or diarrhea. She had a bowel movement this morning and it was normal. She continues to pass gas. She is at the end of her menstrual cycle. Her only abdominal surgeries are of 2 C sections. She denies any dysuria, frequency or urgency. Related Data Home Medications Medication Instructions Recorded Confirmed tizanidine 4 mg tablet mg PO BEDTIME PRN tab 07/16/19 01/07/20 Previous Rx's Medication Instructions Recorded vkxlkegekq-wzumsaipqxeaw-xcek 1 cap PO Q4-6H PRN #14 cap 08/03/18 [Fioricet] fluticasone propionate 110 1 puff INHALATION BID #12 gram 06/27/19 mcg/actuation HFA aerosol inhaler ipratropium 0.5 mg-albuterol 3 mg 3 ml INHALATION QID PRN #90 ml 06/27/19 (2.5 mg base)/3 mL nebulization soln peak flow meter #1 each 06/27/19 sertraline 25 mg tablet 50 mg PO DAILY #180 tab 07/28/19 gabapentin 300 mg capsule 300 mg PO .COMPLEX #90 cap 01/07/20 hydroxyzine pamoate 25 mg capsule 25 mg PO TID PRN #60 cap 01/07/20 meloxicam 7.5 mg tablet 7.5 mg PO BID #90 tab 01/07/20 albuterol sulfate 90 mcg/actuation 2 puff INHALATION Q4-6H PRN #18 01/09/20 aerosol inhaler gram hydrocodone-acetaminophen 1 tab PO Q4-6H PRN #10 tab 01/31/20 hyoscyamine sulfate 0.125 mg PO BID-QID PRN #20 tab 01/31/20 ondansetron 4 mg PO TID-QID PRN #10 tab 12/26/20 Allergies Allergy/AdvReac Type Severity Reaction Status Date / Time sumatriptan [From IMITREX] AdvReac Intermediate somnolence, Verified 01/31/20 13:37 nausea, vertigo, visual disturbances Review of Systems Constitutional Constitutional: Denies chills, Denies fatigue, Denies fever(s), Denies frequent falls, Denies lethargy and Denies weakness Eyes Eyes: Denies change in vision, Denies eye discharge, Denies irritation and Denies loss of vision ENT Ears, Nose, Mouth, and Throat: Denies change in voice, Denies dizziness, Denies neck pain, Denies sore throat and Denies throat swelling Cardiovascular Cardiovascular: Denies chest pain, Denies irregular heart rhythm, Denies lightheadedness, Denies palpitations, Denies dyspnea, Denies dyspnea on exertion and Denies orthopnea Respiratory Respiratory: Denies cough, Denies dyspnea, Denies dyspnea on exertion and Denies wheezing Gastrointestinal Gastrointestinal: Reports abdominal pain, Denies change in bowel habits, Denies diarrhea, Reports nausea and Denies vomiting Musculoskeletal Musculoskeletal: Denies neck pain and Denies numbness Integumentary/Breasts Skin/Breast: Denies pruritus, Denies erythema, Denies rash and Denies wounds Neurologic Neurologic: Denies behavioral changes, Denies confusion, Denies dizziness, Denies frequent falls, Denies loss of vision, Denies numbness and Denies weakness Psychiatric Psychiatric: Denies anxiety, Denies behavioral changes, Denies confusion, Denies depression, Denies homicidal ideation and Denies suicidal ideation Endocrine Endocrine: Denies fatigue, Denies flushing and Denies palpitations Hematologic/Lymphatic Hematologic/Lymphatic: Denies easy bruising Allergic/Immunologic Allergic/Immunologic: Denies urticaria, Denies throat swelling and Denies wheezing Patient History Medical History (Updated 01/31/20 @ 16:57 by Felipe Villalobos DO) Degenerative joint disease of both hips 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 An obvious distress, tearful, having a pain episode on initial exam, which lasts approximately 1 minute HEAD: Atraumatic. Normocephalic. EYES: Pupils equal round and reactive. Extraocular motions intact. No scleral icterus. No injection or drainage. ENT: Nose without bleeding, purulent drainage. Throat without erythema, tonsillar hypertrophy or exudate. Airway patent. NECK: Trachea midline. Non tender CARDIOVASCULAR: Regular rate and rhythm without murmurs, gallops, or rubs. RESPIRATORY: Clear to auscultation. Breath sounds equal bilaterally. No wheezes, rales, or rhonchi. GASTROINTESTINAL: Abdomen soft, some periumbilical tenderness on palpation, nondistended. EXTREMITIES: No edema or joint tenderness. BACK: Nontender without deformity or crepitance. No flank tenderness. NEURO: AOx3. SKIN: No rash or erythema of visible areas Initial Vital Signs Initial Vital Signs: Vital Signs Temperature 97.6 F 01/31/20 13:34 Pulse Rate 68 01/31/20 13:34 Respiratory Rate 12 01/31/20 13:34 Blood Pressure 126/59 L 01/31/20 13:34 Pulse Oximetry 99 01/31/20 13:34 Course Orders Ordered: ED Orders 01/31/20 14:44 XR acute abdomen series Stat 01/31/20 14:50 Complete Blood Count AUTO DIFF Stat Comprehensive Metabolic Panel Stat Lipase Stat Partial Thromboplastin Time Stat Prothrombin Time INR Stat 01/31/20 15:03 CT abdomen pelvis w con Stat Discontinued Medications Hydromorphone HCl (Hydromorphone 0.5 Mg Inj) 0.5 mg IV NOW ONE Stop: 01/31/20 15:45 Last Admin: 01/31/20 15:59 Dose: 0.5 mg Documented by: SHAQUILLE Sodium Chloride (Normal Saline 0.9%) 1,000 mls @ 1,000 mls/hr IV BOLUS ONE Stop: 01/31/20 16:39 Last Infusion: 01/31/20 17:10 Dose: 0 mls/hr Documented by: Admin: 01/31/20 15:59 Dose: 1,000 mls/hr Documented by: SHAQUILLE Ondansetron HCl (Ondansetron 4 Mg/2 Ml Inj) 4 mg IV NOW ONE Stop: 01/31/20 15:45 Last Admin: 01/31/20 15:59 Dose: 4 mg Documented by: SHAQUILLE Consultations Consultation #1: Discussed patient history, physical, labs and CT with on-call surgery. Recommendations for symptomatic treatment only and close follow-up with primary care provider or even her office Vital Signs Vital signs: Vital Signs - 8 hr 01/31/20 13:34 01/31/20 15:15 01/31/20 15:30 Temperature 97.6 F Pulse Rate 68 60 43 L Respiratory Rate 12 15 Blood Pressure 126/59 L 121/75 124/76 Pulse Oximetry 99 99 98 01/31/20 15:58 01/31/20 16:00 01/31/20 16:30 Temperature Pulse Rate 50 L 51 L 50 L Respiratory Rate 12 14 18 Blood Pressure 128/78 124/72 Pulse Oximetry 100 99 99 01/31/20 16:31 01/31/20 17:00 Temperature Pulse Rate Respiratory Rate 17 15 Blood Pressure 122/65 Pulse Oximetry 99 100 MDM - Abdominal Pain Lab Data Result diagrams: 01/31/20 14:50 01/31/20 14:50 Labs: Lab Results 01/31/20 01/31/20 01/31/20 Range/Units 14:50 14:50 14:50 WBC 12.2 H (4.5-11.0) X10^3/uL RBC 4.64 (4.0-5.2) X10^6/uL Hgb 13.3 (12.0-16.0) g/dL Hct 39.6 (36-46) % MCV 85.4 (80-100) fL MCH 28.6 (26-34) PG MCHC 33.5 (30-36) % RDW 12.2 (11.6-14.8) % Plt Count 351 (150-400) X10^3/uL Neut % (Auto) 75.4 H (50-75) % Lymph % (Auto) 14.1 L (25-40) % Jerome % (Auto) 7.7 (3-14) % Eos % (Auto) 2.1 (2-4) % Baso % (Auto) 0.7 (0-2) % Neut # (Auto) 9200 H (8577-4191) /uL Lymph # (Auto) 1700 (7017-0724) /uL Jerome # (Auto) 900 (0-900) /uL Eos # (Auto) 300 (0-450) /uL Baso # (Auto) 100 (0-100) /uL PT 11.7 (10.1-12.7) SECONDS INR 1.0 (0.9-1.3) APTT 31 (26.4-36.2) SECONDS Sodium 138 (137-145) mmol/L Potassium 4.2 (3.4-5.1) mmol/L Chloride 105 (98-107) mmol/L Carbon Dioxide 28 (22-32) mmol/L BUN 15 (7-17) mg/dL Creatinine 0.83 (0.52-1.04) mg/dL Estimated GFR > 60.0 (>60) mL/min BUN/Creatinine Ratio 18.1 (6-22) Glucose 106 H (70-100) mg/dL Calcium 9.3 (8.4-10.2) mg/dL Total Bilirubin 0.3 (0.2-1.3) mg/dL AST 33 (14-36) IU/L ALT 50 H (<35) IU/L Alkaline Phosphatase 55 (38-126) U/L Total Protein 7.7 (6.3-8.2) g/dL Albumin 4.4 (3.5-5.0) g/dL Globulin 3.3 (1.7-4.1) g/dL Albumin/Globulin Ratio 1.3 (1.0-2.8) Lipase 61 (23-300) U/L Point of care testing: Point of Care Testing Test Results Negative Urine Dip Bedside Urine Glucose Negative Bedside Urine Bilirubin - Negative Bedside Urine Ketone - Negative Urine Specific [place] 1.020 Bedside Urine Occult Blood - Negative Bedside Urine pH 6 Bedside Urine Protein - Negative Bedside Urine Urobilinogen - Negative Bedside Urine Nitrite - Negative Bedside Urine Leukocytes - Negative Esterase Imaging Data Abdominal x-ray: Radiologist's Impression: [address] [id number] ReportSigned Patient: Shayla Porter BMR#: [id number]: 1990Acct:[id number]/Sex: 29 / FDate of Service: 01/31/20Loc: EDAccession Number: [id number] Procedure: XR acute abdomen series Ordering Provider: Felipe Villalobos D.O. PROCEDURE: XR ACUTE ABDOMEN SERIES INDICATIONS: Abdominal pain/tightness, crampy TECHNIQUE: One view chest and two views of the abdomen were acquired. COMPARISON: [facility], CR, XR CHEST 1V, 03/01/2019, 19:43. FINDINGS: Surgical changes and devices: None. Chest: Lungs are clear. Heart size is normal. No pleural effusions. No pneumoperitoneum. Abdomen: Bowel gas pattern is normal. No suspicious calcifications. Visualiz ed solid organ contours appear normal. Bones: No suspicious bony lesions. IMPRESSION: There is a nonobstructive bowel gas pattern seen. Clear lungs. Dictated by: Jordan Hays M.D. on 01/31/2020 at 14:45 Approved by: Jordan Hays M.D. on 01/31/2020 at 14:45 CT scan - abdomen/pelvis: Radiologist's Impression: Chart Viewer Diagnostics DATE TYPE STATUS REF RANGE/AUTHOR Hx Today 15:03 Jordan Hays Today 14:44 Jordan Hays 12/04/19 10:50 MR hip arthrogram 10/07/19 20:21 Ed Grover 06/27/19 12:14 Georges Rao 03/01/19 19:45 Ana Calderon 12/14/18 21:57 Jossue Friedman 08/23/17 15:21 Sree Unger 07/16/17 00:00 Philippe Vela Nina B 29, F0 1990 REG ER, Main ED R06 167.64cm 117.934kg BMI: 42.0kg/m? Abdominal Pain Search Chart No Data to Display somnolence, nausea, vertigo, visual disturbances ONSET 08/06/13 08/06/13 04/20/14 04/20/14 05/25/14 05/25/14 11/12/14 11/12/14 06/29/16 Today 16:00 Shayla Porter 29 F [address] [id number] Scan ReportSigned Patient: Shayla Porter BMR#: [id number]: 1990Acct:[id number]/Sex: 29 / FDate of Service: 01/31/20Loc: EDAccession Number: [id number] Procedure: CT abdomen pelvis w con Ordering Provider: Felipe Villalobos D.O. PROCEDURE: CT ABDOMEN PELVIS W CON INDICATIONS: severe abdominal pain TECHNIQUE: After the administration of intravenous contrast, 5 mm thick sections acquired from the diaphragm to the symphysis. 5 mm coronal and sagittal reformats were acquired. For radiation dose reduction, the following was used: automated exposure control, adjustment of mA and/or kV according to patient size. COMPARISON: [facility], , ABDOMEN LIMITED, 10/21/2015, 22:07. [facility], , ABDOMEN COMPLETE, 12/11/2015, 17:20. FINDINGS: Image quality: Excellent. ABDOMEN: Lung bases: Lung bases are clear. Heart size is normal. Solid organs: Liver is normal in size and enhancement. Diffuse fatty liver infiltration is noted. Gallbladder wall is not thickened. Biliary system is non dilated. Pancreas enhances normally. Spleen is normal in size and enhancement. Accessory splenules can be seen along the hilum of the primary spleen. No adrenal nodules. Kidneys demonstrate normal size and enhancement, without hydronephrosis. Peritoneum and bowel: There is moderate to prominent concentric wall thickening involving the terminal ileum and the distal ileum. Surrounding inflammatory changes can be seen, with mild free fluid. No loculated abscess can be seen. The more proximal small bowel is unremarkable. No significant colonic abnormality can be seen. Nodes and vessels: No retroperitoneal or mesenteric adenopathy by size criteria. Aorta and inferior vena cava are normal in size. Miscellaneous: No ventral hernias. PELVIS: Genitourinary: Bladder wall thickness is normal. The uterus appears normal for age. No adnexal masses are seen. Miscellaneous: No inguinal hernias or adenopathy. Bones: No suspicious bony lesions. No significant abnormality of the sacroiliac joints can be seen. No vertebral body compression fractures. IMPRESSION: Focal inflammatory change involving the distal ileum, including involving the terminal ileum. Although these findings are nonspecific, please consider Crohn's disease. No alberto findings of abscess can be seen. No significant colonic abnormality is seen. MDM Narrative Medical decision making narrative: Multiple etiologies for patient's symptoms considered including: [Bowel obstruction versus pancreatitis versus gallbladder disease versus ileus versus other] Patient's symptoms improved over duration of stay with above-stated therapies. Findings and discharge diagnosis discussed with patient/family followed by verbalization of understanding Return precautions discussed with patient/family whom verbalize understanding. Discharge Plan Departure Patient Disposition: Home Clinical Impression: Abdominal pain Qualifiers: Abdominal location: generalized Qualified Code(s): R10.84 - Generalized abdominal pain Instructions: DI for Abdominal Pain-Adult Activity Restrictions/Additional Instructions: *You have been diagnosed with [abdominal pain with very reassuring lab work. CT demonstrates some inflammation at the last portion of your small bowel, which is a nonspecific finding.] *What to do: *Take medications as directed *Follow up with your primary care provider in 2-3 days, call for an appointment. Let them know you were seen in the Emergency Department and that we ask that you be seen in follow up. I have also contacted our general surgeon on-call who is in agreement with treating her symptoms and encouraging follow-up either with her or with your primary care provider *Return to ER if you should have any new, worsening or concerning symptoms 1. Drink plenty of fluids with frequent small sips. 2. For the next 24 hours a clear liquid diet is advised. After that please employ a B.R.A.T. diet which would include bananas, rice, apples, toast and other mild food items Prescriptions: New hydrocodone-acetaminophen 5-325 mg tablet 1 tab PO Q4-6H PRN (Reason: pain) Qty: 10 RF: 0 hyoscyamine sulfate 0.125 mg tablet 0.125 mg PO BID-QID PRN (Reason: dyspepsia) Qty: 20 RF: 0 ondansetron 4 mg tablet,disintegrating 4 mg PO TID-QID PRN (Reason: nausea and vomiting) Qty: 10 RF: 0 No Action albuterol sulfate 90 mcg/actuation HFA aerosol inhaler 2 puff INHALATION Q4-6H PRN (Reason: shortness of breath or wheezing) Qty: 18 RF: 0 Flovent HFA 110 mcg/actuation HFA aerosol inhaler 1 puff INHALATION BID Qty: 12 RF: 3 ipratropium-albuterol 0.5 mg-3 mg(2.5 mg base)/3 mL solution for nebulization 3 ml INHALATION QID PRN (Reason: shortness of breath or wheezing) Qty: 90 RF: 0 (DME) peak flow meter Device See Rx Instructions .ROUTE .MEDSUPPLY Qty: 1 RF: 0 sertraline 25 mg tablet 50 mg PO DAILY Qty: 180 RF: 1 waqvmhccxo-ukqzaoqdgdpul-xget [Fioricet] 50-300-40 mg capsule 1 cap PO Q4-6H PRN (Reason: pain) Qty: 14 RF: 0 tizanidine 4 mg tablet PO BEDTIME PRN (Reason: muscle spasticity) RF: 0 meloxicam 7.5 mg tablet 7.5 mg PO BID Qty: 90 RF: 2 Hold Instructions: Home Medication placed on hold at Doctor's office hydroxyzine pamoate 25 mg capsule 25 mg PO TID PRN (Reason: anxiety) Qty: 60 RF: 1 gabapentin 300 mg capsule 300 mg PO .COMPLEX Qty: 90 RF: 2 Referrals: Dariela Darby MD [Physician] - Sheri Weinstein DO [Primary Care Provider] -
--- NOTE | 2020-01-31 15:03 | DI.CT.S_ITS ---
PROCEDURE: CT ABDOMEN PELVIS W CON INDICATIONS: severe abdominal pain TECHNIQUE: After the administration of intravenous contrast, 5 mm thick sections acquired from the diaphragm to the symphysis. 5 mm coronal and sagittal reformats were acquired. For radiation dose reduction, the following was used: automated exposure control, adjustment of mA and/or kV according to patient size. COMPARISON: [facility], , ABDOMEN LIMITED, 10/21/2015, 22:07. [facility], ABDOMEN COMPLETE, 12/11/2015, 17:20. FINDINGS: Image quality: Excellent. ABDOMEN: Lung bases: Lung bases are clear. Heart size is normal. Solid organs: Liver is normal in size and enhancement. Diffuse fatty liver infiltration is noted. Gallbladder wall is not thickened. Biliary system is non dilated. Pancreas enhances normally. Spleen is normal in size and enhancement. Accessory splenules can be seen along the hilum of the primary spleen. No adrenal nodules. Kidneys demonstrate normal size and enhancement, without hydronephrosis. Peritoneum and bowel: There is moderate to prominent concentric wall thickening involving the terminal ileum and the distal ileum. Surrounding inflammatory changes can be seen, with mild free fluid. No loculated abscess can be seen. The more proximal small bowel is unremarkable. No significant colonic abnormality can be seen. Nodes and vessels: No retroperitoneal or mesenteric adenopathy by size criteria. Aorta and inferior vena cava are normal in size. Miscellaneous: No ventral hernias. PELVIS: Genitourinary: Bladder wall thickness is normal. The uterus appears normal for age. No adnexal masses are seen. Miscellaneous: No inguinal hernias or adenopathy. Bones: No suspicious bony lesions. No significant abnormality of the sacroiliac joints can be seen. No vertebral body compression fractures. IMPRESSION: Focal inflammatory change involving the distal ileum, including involving the terminal ileum. Although these findings are nonspecific, please consider Crohn's disease. No alberto findings of abscess can be seen. No significant colonic abnormality is seen. Incidental note is made of: Fatty liver infiltration Dictated by: Jordan Hays M.D. on 01/31/2020 at 15:20 Approved by: Jordan Hays M.D. on 01/31/2020 at 15:23
[2020-01-31 15:04] LABS: Add Manual Diff / Slide Review NO; Basophils Absolute Auto 100 /uL (0-100); Basophils Percent Auto 0.7 % (0-2); Eosinophils Absolute Auto 300 /uL (0-450); Eosinophils Percent Auto 2.1 % (2-4); Hematocrit 39.6 % (36-46); Hemoglobin 13.3 g/dL (12.0-16.0); Lymphocytes Absolute Auto 1700 /uL (1100-4500); Lymphocytes Percent Auto 14.1 % (25-40); Mean Corpuscular HGB Conc 33.5 % (30-36); Mean Corpuscular Hemoglobin 28.6 PG (26-34); Mean Corpuscular Volume 85.4 fL (80-100); Monocytes Absolute Auto 900 /uL (0-900); Monocytes Percent Auto 7.7 % (3-14); Neutrophils Absolute Auto 9200 /uL (1500-7000); Neutrophils Percent Auto 75.4 % (50-75); Platelet Count 351 X10^3/uL (150-400); Red Blood Cell Count 4.64 X10^6/uL (4.0-5.2); Red Cell Distribution Width 12.2 % (11.6-14.8); White Blood Cell Count 12.2 X10^3/uL (4.5-11.0)
[2020-01-31 15:12] LABS: Prothrombin Time 11.7 SECONDS (10.1-12.7)
[2020-01-31 15:15] LABS: PTT Partial Thromboplastin Tim 31 SECONDS (26.4-36.2)
[2020-01-31 15:19] LABS: Alanine Aminotransferase 50 IU/L (<35); Albumin 4.4 g/dL (3.5-5.0); Albumin Globulin Ratio 1.3 (1.0-2.8); Alkaline Phosphatase 55 U/L (38-126); Aspartate Aminotransferase 33 IU/L (14-36); BUN Creatinine Ratio 18.1 (6-22); Bilirubin Total 0.3 mg/dL (0.2-1.3); Blood Urea Nitrogen 15 mg/dL (7-17); Calcium 9.3 mg/dL (8.4-10.2); Carbon Dioxide 28 mmol/L (22-32); Chloride 105 mmol/L (98-107); Estimated Glomerular Filt Rate > 60.0 mL/min (>60); Globulin 3.3 g/dL (1.7-4.1); Glucose 106 mg/dL (70-100); HEMOLYSIS < 15 (0-50); Lipase 61 U/L (23-300); Potassium 4.2 mmol/L (3.4-5.1); Sodium 138 mmol/L (137-145); Total Protein 7.7 g/dL (6.3-8.2)
[2020-01-31] MEDS: HYDROMORPHONE 0.5 MG INJ IV (15:59)
[2020-01-31] MEDS: ONDANSETRON 4 MG/2 ML INJ IV (15:59)
[2020-01-31] MEDS: SODIUM CHLORIDE 0.9% 1,000 ML 1000 ML IV (15:59)
== END 2020-01-31 17:16 | disposition home or self-care (01) ==
PROVIDERS: Emergency Provider Emergency Medicine; PCP Family Medicine
DX: R10.84 Generalized abdominal pain (principal)
CPT/HCPCS: 36415; 74022; 74177; 80053; 81003; 81025; 83690; 85025; 85610; 85730; 96361; 96374; 96375; 99284; J1170; J2405; Q9967

== ENCOUNTER 2020-02-02 14:53 | Emergency (ER) | payer OTHER, MEDICAID, SELFPAY ==
[2020-02-02] VITALS (7 sets, daily range): BP systolic 100–119; BP diastolic 58–67; PULSE 51–65; RESP 18; TEMP 36.6; O2SAT 98–100
--- NOTE | 2020-02-02 15:22 | ED.ABDPAIN ---
HPI - Abdominal Pain General Chief Complaint: Abdominal Pain Stated Complaint: Lower contraction like pain in abd Time Seen by Provider: 02/02/20 15:07 Source: patient Mode of arrival: Ambulatory Limitations: no limitations History of Present Illness HPI narrative: 29-year-old female former smoker with history of asthma returns for re-evaluation of lower abdominal pain. She has had this pain for the past few days and states that is largely persistent but also can come in some ways in her lower abdomen. She denies any fever chills nor any change in bowel habits or diet. She is not dizzy nor weak or lightheaded. She had a very thorough evaluation including lab work and a CT of abdomen and pelvis which showed some thickening of her terminal ileum. She was given prescriptions, encouraged to employ clear liquid diet and follow up closely. She states the symptoms are no worse but have not improved much either. MD complaint: abdominal pain Onset (ago): day(s) Pain Consistency: constant Location: suprapubic Severity: moderate Quality: cramping and aching Radiation: none Relieving factors: nothing Exacerbating factors: nothing Associated symptoms: denies other symptoms Related Data Home Medications Medication Instructions Recorded Confirmed tizanidine 4 mg tablet mg PO BEDTIME PRN tab 07/16/19 01/07/20 Previous Rx's Medication Instructions Recorded vlyftuqkir-gbmluhupxqqge-mfmg 1 cap PO Q4-6H PRN #14 cap 08/03/18 [Fioricet] fluticasone propionate 110 1 puff INHALATION BID #12 gram 06/27/19 mcg/actuation HFA aerosol inhaler ipratropium 0.5 mg-albuterol 3 mg 3 ml INHALATION QID PRN #90 ml 06/27/19 (2.5 mg base)/3 mL nebulization soln peak flow meter #1 each 06/27/19 sertraline 25 mg tablet 50 mg PO DAILY #180 tab 07/28/19 gabapentin 300 mg capsule 300 mg PO .COMPLEX #90 cap 01/07/20 hydroxyzine pamoate 25 mg capsule 25 mg PO TID PRN #60 cap 01/07/20 meloxicam 7.5 mg tablet 7.5 mg PO BID #90 tab 01/07/20 albuterol sulfate 90 mcg/actuation 2 puff INHALATION Q4-6H PRN #18 01/09/20 aerosol inhaler gram hydrocodone-acetaminophen 1 tab PO Q4-6H PRN #10 tab 01/31/20 hyoscyamine sulfate 0.125 mg PO BID-QID PRN #20 tab 01/31/20 ondansetron 4 mg PO TID-QID PRN #10 tab 01/31/20 Allergies Allergy/AdvReac Type Severity Reaction Status Date / Time sumatriptan [From IMITREX] AdvReac Intermediate somnolence, Verified 01/31/20 13:37 nausea, vertigo, visual disturbances Review of Systems Constitutional Constitutional: Denies chills, Denies fatigue, Denies fever(s), Denies frequent falls, Denies lethargy and Denies weakness Eyes Eyes: Denies change in vision, Denies eye discharge, Denies irritation and Denies loss of vision ENT Ears, Nose, Mouth, and Throat: Denies change in voice, Denies dizziness, Denies neck pain, Denies sore throat and Denies throat swelling Cardiovascular Cardiovascular: Denies chest pain, Denies irregular heart rhythm, Denies lightheadedness, Denies palpitations, Denies dyspnea, Denies dyspnea on exertion and Denies orthopnea Respiratory Respiratory: Denies cough, Denies dyspnea, Denies dyspnea on exertion and Denies wheezing Gastrointestinal Gastrointestinal: Reports abdominal pain, Denies change in bowel habits, Denies diarrhea, Reports nausea and Denies vomiting Musculoskeletal Musculoskeletal: Denies neck pain and Denies numbness Integumentary/Breasts Skin/Breast: Denies pruritus, Denies erythema, Denies rash and Denies wounds Neurologic Neurologic: Denies behavioral changes, Denies confusion, Denies dizziness, Denies frequent falls, Denies loss of vision, Denies numbness and Denies weakness Psychiatric Psychiatric: Denies anxiety, Denies behavioral changes, Denies confusion, Denies depression, Denies homicidal ideation and Denies suicidal ideation Endocrine Endocrine: Denies fatigue, Denies flushing and Denies palpitations Hematologic/Lymphatic Hematologic/Lymphatic: Denies easy bruising Allergic/Immunologic Allergic/Immunologic: Denies urticaria, Denies throat swelling and Denies wheezing Patient History Medical History (Updated 02/02/20 @ 18:12 by Felipe Villalobos DO) Degenerative joint disease of both hips 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 Extraoccular muscles are intact bilaterally. There is no subconjunctival hemorrhage or exudate. CHEST: Lungs are clear to auscultation bilaterally and free of wheezes, rales, or rhonchi. Heart rate is regular rhythm, there are no murmurs, clicks, rubs, or gallops. There is no chest wall tenderness. ABD: Abdomen is soft and mildly tender in the lower abdomen, no rebound or guarding. There is no guarding or rebound. Bowel sounds are normal in all 4 quadrants. There is no mass or organomegaly. EXT: Full painless ROM of all extremities with no loss of sensation or strength. SKIN: Warm, pink, and dry. No erythema or rash Initial Vital Signs Initial Vital Signs: Vital Signs Temperature 97.8 F 02/02/20 14:57 Pulse Rate 65 02/02/20 14:57 Respiratory Rate 18 02/02/20 14:57 Blood Pressure 105/67 02/02/20 14:57 Pulse Oximetry 98 02/02/20 14:57 Course Course Course Narrative: Patient's labs are improved, x-ray shows no significant findings. We discussed that since her labs are actually improved, and her symptoms have not changed that the utility of repeating a CAT scan is low. I discussed with her the unfortunate likelihood of symptoms lasting many days if not weeks. She has an appointment with her PCP tomorrow. Return precautions given, questions answered to her apparent satisfaction. She feels much better after above-stated therapies. Orders Ordered: Discontinued Medications Hydromorphone HCl (Hydromorphone 0.5 Mg Inj) 0.5 mg IV NOW ONE Stop: 02/02/20 17:44 Last Admin: 02/02/20 17:59 Dose: 0.5 mg Documented by: CINDA Sodium Chloride (Normal Saline 0.9%) 1,000 mls @ 1,000 mls/hr IV BOLUS ONE Stop: 02/02/20 16:22 Last Infusion: 02/02/20 17:04 Dose: 0 mls/hr Documented by: Admin: 02/02/20 16:04 Dose: 1,000 mls/hr Documented by: CINDA Vital Signs Vital signs: Vital Signs - 8 hr 02/02/20 14:57 02/02/20 16:46 02/02/20 16:47 Temperature 97.8 F Pulse Rate 65 61 58 L Respiratory Rate 18 Blood Pressure 105/67 100/58 L Pulse Oximetry 98 100 100 02/02/20 17:00 02/02/20 17:30 Temperature Pulse Rate 52 L 53 L Respiratory Rate Blood Pressure 104/58 L 103/61 Pulse Oximetry 100 100 MDM - Abdominal Pain Lab Data Result diagrams: 02/02/20 15:35 02/02/20 15:35 Labs: Lab Results 02/02/20 02/02/20 Range/Units 15:35 15:35 WBC 7.1 (4.5-11.0) X10^3/uL RBC 4.13 (4.0-5.2) X10^6/uL Hgb 11.9 L (12.0-16.0) g/dL Hct 35.0 L (36-46) % MCV 84.8 (80-100) fL MCH 28.8 (26-34) PG MCHC 33.9 (30-36) % RDW 12.2 (11.6-14.8) % Plt Count 328 (150-400) X10^3/uL Neut % (Auto) 66.1 (50-75) % Lymph % (Auto) 19.7 L (25-40) % [place] % (Auto) 9.1 (3-14) % Eos % (Auto) 4.2 H (2-4) % Baso % (Auto) 0.9 (0-2) % Neut # (Auto) 4700 (6321-8770) /uL Lymph # (Auto) 1400 (8651-9358) /uL [place] # (Auto) 600 (0-900) /uL Eos # (Auto) 300 (0-450) /uL Baso # (Auto) 100 (0-100) /uL Sodium 138 (137-145) mmol/L Potassium 3.8 (3.4-5.1) mmol/L Chloride 106 (98-107) mmol/L Carbon Dioxide 32 (22-32) mmol/L BUN 12 (7-17) mg/dL Creatinine 0.84 (0.52-1.04) mg/dL Estimated GFR > 60.0 (>60) mL/min BUN/Creatinine Ratio 14.3 (6-22) Glucose 96 (70-100) mg/dL Calcium 8.9 (8.4-10.2) mg/dL Total Bilirubin 0.2 (0.2-1.3) mg/dL AST 28 (14-36) IU/L ALT 38 H (<35) IU/L Alkaline Phosphatase 45 (38-126) U/L Total Protein 7.0 (6.3-8.2) g/dL Albumin 3.9 (3.5-5.0) g/dL Globulin 3.1 (1.7-4.1) g/dL Albumin/Globulin Ratio 1.3 (1.0-2.8) Lipase 62 (23-300) U/L Imaging Data Abdominal x-ray: Radiologist's Impression: 96 Felipe Villalobos, Find Patient Imaging - Shayla Porter 29 F 1990 ACTIVITY DATE EXAM STATUS AUTHOR 02/02/20 17:[address] [id number] ReportSigned Patient: Shayla Porter BMR#: [id number]: 1990Acct:[id number]/Sex: 29 / FDate of Service: 02/02/20Loc: EDAccession Number: [id number] Procedure: XR acute abdomen series Ordering Provider: Felipe Villalobos D.O. PROCEDURE: XR ACUTE ABDOMEN SERIES INDICATIONS: Abdominal pain, worsening TECHNIQUE: One view chest and two views of the abdomen were acquired. COMPARISON: [facility], XR ACUTE ABDOMEN SERIES, 01/31/2020, 14:45. FINDINGS: Surgical changes and devices: None. Chest: Lungs are clear. Heart size is normal. No pleural effusions. No pneumoperitoneum. Abdomen: Bowel gas pattern is normal. No suspicious calcifications. Visualized solid organ contours appear normal. Bones: No suspicious bony lesions. IMPRESSION: No acute finding. Dictated by: Lawrence Baxter M.D. on 02/02/2020 at 18:01 Approved by: Lawrence Baxter M.D. on 02/02/2020 at 18:02 Discharge Plan Departure Patient Disposition: Home Clinical Impression: Abdominal pain Qualifiers: Abdominal location: generalized Qualified Code(s): R10.84 - Generalized abdominal pain Instructions: DI for Abdominal Pain-Adult Activity Restrictions/Additional Instructions: *You have been diagnosed with [abdominal pain, likely due to inflammation of your terminal ileum as we discussed at your previous visit. Today's exam, labs and imaging is reassuring] *What to do: *Take medications as directed *Follow up with your primary care provider tomorrow as planned t. Let them know you were seen in the Emergency Department and that we ask that you be seen in follow up *Return to ER if you should have any new, worsening or concerning symptoms Prescriptions: No Action albuterol sulfate 90 mcg/actuation HFA aerosol inhaler 2 puff INHALATION Q4-6H PRN (Reason: shortness of breath or wheezing) Qty: 18 RF: 0 Flovent HFA 110 mcg/actuation HFA aerosol inhaler 1 puff INHALATION BID Qty: 12 RF: 3 ipratropium-albuterol 0.5 mg-3 mg(2.5 mg base)/3 mL solution for nebulization 3 ml INHALATION QID PRN (Reason: shortness of breath or wheezing) Qty: 90 RF: 0 (DME) peak flow meter Device See Rx Instructions .ROUTE .MEDSUPPLY Qty: 1 RF: 0 sertraline 25 mg tablet 50 mg PO DAILY Qty: 180 RF: 1 hydrocodone-acetaminophen 5-325 mg tablet 1 tab PO Q4-6H PRN (Reason: pain) Qty: 10 RF: 0 hyoscyamine sulfate 0.125 mg tablet 0.125 mg PO BID-QID PRN (Reason: dyspepsia) Qty: 20 RF: 0 ondansetron 4 mg tablet,disintegrating 4 mg PO TID-QID PRN (Reason: nausea and vomiting) Qty: 10 RF: 0 azlbhsqhzl-aysfhgqtrgisy-xywk [Fioricet] 50-300-40 mg capsule 1 cap PO Q4-6H PRN (Reason: pain) Qty: 14 RF: 0 tizanidine 4 mg tablet PO BEDTIME PRN (Reason: muscle spasticity) RF: 0 meloxicam 7.5 mg tablet 7.5 mg PO BID Qty: 90 RF: 2 Hold Instructions: Home Medication placed on hold at Doctor's office hydroxyzine pamoate 25 mg capsule 25 mg PO TID PRN (Reason: anxiety) Qty: 60 RF: 1 gabapentin 300 mg capsule 300 mg PO .COMPLEX Qty: 90 RF: 2 Referrals: Sheri Weinstein DO [Primary Care Provider] -
[2020-02-02 15:47] LABS: Add Manual Diff / Slide Review NO; Basophils Absolute Auto 100 /uL (0-100); Basophils Percent Auto 0.9 % (0-2); Eosinophils Absolute Auto 300 /uL (0-450); Eosinophils Percent Auto 4.2 % (2-4); Hemoglobin 11.9 g/dL (12.0-16.0); Lymphocytes Absolute Auto 1400 /uL (1100-4500); Lymphocytes Percent Auto 19.7 % (25-40); Mean Corpuscular HGB Conc 33.9 % (30-36); Mean Corpuscular Hemoglobin 28.8 PG (26-34); Mean Corpuscular Volume 84.8 fL (80-100); Monocytes Absolute Auto 600 /uL (0-900); Monocytes Percent Auto 9.1 % (3-14); Neutrophils Absolute Auto 4700 /uL (1500-7000); Neutrophils Percent Auto 66.1 % (50-75); Platelet Count 328 X10^3/uL (150-400); Red Blood Cell Count 4.13 X10^6/uL (4.0-5.2); Red Cell Distribution Width 12.2 % (11.6-14.8); White Blood Cell Count 7.1 X10^3/uL (4.5-11.0)
[2020-02-02 15:57] LABS: Alanine Aminotransferase 38 IU/L (<35); Albumin 3.9 g/dL (3.5-5.0); Albumin Globulin Ratio 1.3 (1.0-2.8); Alkaline Phosphatase 45 U/L (38-126); Aspartate Aminotransferase 28 IU/L (14-36); BUN Creatinine Ratio 14.3 (6-22); Bilirubin Total 0.2 mg/dL (0.2-1.3); Blood Urea Nitrogen 12 mg/dL (7-17); Calcium 8.9 mg/dL (8.4-10.2); Carbon Dioxide 32 mmol/L (22-32); Chloride 106 mmol/L (98-107); Estimated Glomerular Filt Rate > 60.0 mL/min (>60); Globulin 3.1 g/dL (1.7-4.1); Glucose 96 mg/dL (70-100); HEMOLYSIS < 15 (0-50); Lipase 62 U/L (23-300); Potassium 3.8 mmol/L (3.4-5.1); Sodium 138 mmol/L (137-145)
[2020-02-02] MEDS: SODIUM CHLORIDE 0.9% 1,000 ML 1000 ML IV (16:04)
--- NOTE | 2020-02-02 17:37 | DI.RAD.S_ITS ---
PROCEDURE: XR ACUTE ABDOMEN SERIES INDICATIONS: Abdominal pain, worsening TECHNIQUE: One view chest and two views of the abdomen were acquired. COMPARISON: [facility], CR, XR ACUTE ABDOMEN SERIES, 01/31/2020, 14:45. FINDINGS: Surgical changes and devices: None. Chest: Lungs are clear. Heart size is normal. No pleural effusions. No pneumoperitoneum. Abdomen: Bowel gas pattern is normal. No suspicious calcifications. Visualized solid organ contours appear normal. Bones: No suspicious bony lesions. IMPRESSION: No acute finding. Dictated by: Lawrence Baxter M.D. on 02/02/2020 at 18:01 Approved by: Lawrence Baxter M.D. on 02/02/2020 at 18:02
[2020-02-02] MEDS: HYDROMORPHONE 0.5 MG INJ IV (17:59)
== END 2020-02-02 18:32 | disposition home or self-care (01) ==
PROVIDERS: Emergency Provider Emergency Medicine; PCP Family Medicine
DX: R10.84 Generalized abdominal pain (principal)
CPT/HCPCS: 36415; 74022; 80053; 83690; 85025; 96361; 96374; 99281; 99284; J1170

== ENCOUNTER → 2020-03-04 14:22 | Outpatient (CLI) | payer OTHER, MEDICAID, SELFPAY ==
[2020-03-04 15:07] LABS: COVID19 -Nasal RAPID Negative (Negative)
== END ==
PROVIDERS: PCP Family Medicine; Visit Provider Family Medicine
DX: Z01.812 Encounter for preprocedural laboratory examination (principal); Z20.822 Contact with and (suspected) exposure to COVID-19
CPT/HCPCS: 87635

== ENCOUNTER → 2020-10-07 13:38 | Outpatient (CLI) | payer OTHER, MEDICAID, SELFPAY ==
[2020-10-07 14:20] LABS: Add Manual Diff / Slide Review NO; Basophils Absolute Auto 0 /uL (0-100); Basophils Percent Auto 0.2 % (0-2); Eosinophils Absolute Auto 200 /uL (0-450); Eosinophils Percent Auto 2.1 % (2-4); Hematocrit 35.5 % (36-46); Lymphocytes Absolute Auto 2800 /uL (1100-4500); Mean Corpuscular HGB Conc 33.9 % (30-36); Mean Corpuscular Hemoglobin 28.2 PG (26-34); Mean Corpuscular Volume 83.3 fL (80-100); Monocytes Absolute Auto 900 /uL (0-900); Monocytes Percent Auto 9.2 % (3-14); Neutrophils Absolute Auto 5800 /uL (1500-7000); Neutrophils Percent Auto 59.5 % (50-75); Platelet Count 350 X10^3/uL (150-400); Red Blood Cell Count 4.26 X10^6/uL (4.0-5.2); Red Cell Distribution Width 12.7 % (11.6-14.8); White Blood Cell Count 9.8 X10^3/uL (4.5-11.0)
[2020-10-07 14:29] LABS: Alanine Aminotransferase 50 IU/L (<35); Albumin 4.6 g/dL (3.5-5.0); Albumin Globulin Ratio 1.5 (1.0-2.8); Alkaline Phosphatase 83 U/L (38-126); Aspartate Aminotransferase 31 IU/L (14-36); BUN Creatinine Ratio 21.6 (6-22); Bilirubin Total 0.1 mg/dL (0.2-1.3); Blood Urea Nitrogen 16 mg/dL (7-17); Calcium 9.3 mg/dL (8.4-10.2); Carbon Dioxide 25 mmol/L (22-32); Chloride 105 mmol/L (98-107); Estimated Glomerular Filt Rate > 60.0 mL/min (>60); Glucose 94 mg/dL (70-100); HEMOLYSIS < 15 (0-50); Potassium 3.8 mmol/L (3.4-5.1); Sodium 138 mmol/L (137-145); Total Protein 7.6 g/dL (6.3-8.2)
[2020-10-07 14:59] LABS: TSH w/ Reflex to FT4 2.64 uIU/mL (0.47-4.68)
== END ==
PROVIDERS: PCP Family Medicine; Referring Provider Family Medicine; Visit Provider Family Medicine
DX: K50.119 Crohn's disease of large intestine with unspecified complications (principal); E66.09 Other obesity due to excess calories; Z68.33 Body mass index [BMI] 33.0-33.9, adult; R73.01 Impaired fasting glucose; D64.9 Anemia, unspecified
CPT/HCPCS: 36415; 80053; 84443; 85025

== ENCOUNTER 2020-10-08 17:14 | Emergency (ER) | payer OTHER, MEDICAID, SELFPAY ==
[2020-10-08 17:43] VITALS: BP 133/75; PULSE 73; RESP 16; TEMP 36.7; O2SAT 99; BMI 41.9
[2020-10-08 18:28] LABS: Alanine Aminotransferase 52 IU/L (<35); Albumin 4.5 g/dL (3.5-5.0); Albumin Globulin Ratio 1.6 (1.0-2.8); Alkaline Phosphatase 66 U/L (38-126); Aspartate Aminotransferase 36 IU/L (14-36); BUN Creatinine Ratio 17.6 (6-22); Bilirubin Total 0.2 mg/dL (0.2-1.3); Blood Urea Nitrogen 13 mg/dL (7-17); Calcium 9.1 mg/dL (8.4-10.2); Carbon Dioxide 28 mmol/L (22-32); Chloride 104 mmol/L (98-107); Estimated Glomerular Filt Rate > 60.0 mL/min (>60); Globulin 2.9 g/dL (1.7-4.1); Glucose 99 mg/dL (70-100); HEMOLYSIS < 15 (0-50); Potassium 3.6 mmol/L (3.4-5.1); Sodium 138 mmol/L (137-145); Total Protein 7.4 g/dL (6.3-8.2)
[2020-10-08 18:36] LABS: Add Manual Diff / Slide Review NO; Basophils Absolute Auto 100 /uL (0-100); Basophils Percent Auto 1.1 % (0-2); Eosinophils Absolute Auto 200 /uL (0-450); Eosinophils Percent Auto 2.2 % (2-4); Hematocrit 34.6 % (36-46); Hemoglobin 11.7 g/dL (12.0-16.0); Lymphocytes Absolute Auto 2300 /uL (1100-4500); Lymphocytes Percent Auto 24.5 % (25-40); Mean Corpuscular HGB Conc 33.9 % (30-36); Mean Corpuscular Hemoglobin 28.3 PG (26-34); Mean Corpuscular Volume 83.5 fL (80-100); Monocytes Absolute Auto 800 /uL (0-900); Monocytes Percent Auto 8.6 % (3-14); Neutrophils Absolute Auto 5900 /uL (1500-7000); Neutrophils Percent Auto 63.6 % (50-75); Platelet Count 357 X10^3/uL (150-400); Red Blood Cell Count 4.14 X10^6/uL (4.0-5.2); White Blood Cell Count 9.3 X10^3/uL (4.5-11.0)
[2020-10-08 22:13] VITALS: BP 171/82; PULSE 90; O2SAT 97
[2020-10-08 22:30] VITALS: PULSE 64; O2SAT 100
[2020-10-08 22:31] VITALS: BP 136/64; PULSE 58; O2SAT 100
[2020-10-08 23:00] VITALS: PULSE 57; O2SAT 100
[2020-10-08 23:01] VITALS: BP 108/55; PULSE 56; RESP 16; O2SAT 100
--- NOTE | 2020-10-08 23:13 | ED.GIBLEED ---
HPI - GI Bleed General Chief complaint: GI Bleed Stated complaint: ANXIETY BLOOD IN STOOL Time Seen by Provider: 10/08/20 22:18 History of Present Illness HPI Narrative: 30-year-old female former smoker with history of asthma presents for evaluation of 2 episodes of bright red blood earlier today. She had been in her normal state of health and denies any change in diet. She had a bowel movement earlier today which was painless and consisted of bright red blood and minimal stool, she 2nd bowel. She denies any history of same. She denies any abdominal pain or hemorrhoids. She is not dizzy nor weak or lightheaded. She denies the use of blood thinners. She did just start Relafen yesterday. Related Data Previous Rx's Medication Instructions Recorded iwlmrnwrfg-gemgjngjmxaok-qhrlqyut 1 cap PO Q4-6H PRN #14 cap 08/03/18 50 mg-300 mg-40 mg capsule (Fioricet) fluticasone propionate 110 1 puff INHALATION BID #12 gram 06/27/19 mcg/actuation HFA aerosol inhaler (Flovent HFA) ipratropium 0.5 mg-albuterol 3 mg 3 ml INHALATION QID PRN #90 ml 06/27/19 (2.5 mg base)/3 mL nebulization soln peak flow meter #1 each 06/27/19 albuterol sulfate 90 mcg/actuation 2 puff INHALATION Q4-6H PRN #18 01/09/20 aerosol inhaler gram tizanidine 4 mg capsule 4 mg PO BEDTIME #30 cap 07/14/20 sertraline 25 mg tablet 50 mg PO DAILY #180 tab 07/28/20 nabumetone 500 mg tablet 500 mg PO BID #60 tab 09/29/20 pantoprazole 40 mg tablet,delayed 40 mg PO DAILY #30 tab 10/08/20 release (Protonix) Allergies Allergy/AdvReac Type Severity Reaction Status Date / Time sumatriptan [From IMITREX] AdvReac Intermediate somnolence, Verified 10/08/20 17:49 nausea, vertigo, visual disturbances Review of Systems Review of Systems Narrative: GENERAL: Denies chills, fatigue, malaise, fever, sweats. HEENT: Denies sinus pain, ear pain, sore throat, difficulty swallowing, dizziness. RESPIRATORY: Denies dyspnea, cough, wheezing, hemoptysis, sputum. CARDIOVASCULAR: Denies chest pain, palpitations, orthopnea, edema, GASTROINTESTINAL: See HPI : Denies dysuria, frequency, incontinence, hematuria, urinary retention. MUSCULOSKELETAL: denies weakness, joint pain, or bony pain SKIN: Denies rash, skin lesions, or other NEUROLOGIC: Denies weakness, headache, numbness, change in speech, confusion, seizures, incoordination. PSYCHIATRIC: No concerning psychosocial issues. 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 Well-developed patient, in mild distress. HEAD: Atraumatic. Normocephalic. EYES: Pupils equal round and reactive. Extraocular motions intact. No scleral icterus. No injection or drainage. ENT: Nose without bleeding, purulent drainage. Throat without erythema, tonsillar hypertrophy or exudate. Airway patent. NECK: Trachea midline. Non tender CARDIOVASCULAR: Regular rate and rhythm without murmurs, gallops, or rubs. RESPIRATORY: Clear to auscultation. Breath sounds equal bilaterally. No wheezes, rales, or rhonchi. GASTROINTESTINAL: Abdomen soft, non-tender, nondistended. Heme Neg for nursing EXTREMITIES: No edema or joint tenderness. BACK: Nontender without deformity or crepitance. No flank tenderness. NEURO: AOx3. SKIN: No rash or erythema of visible areas Initial Vital Signs Initial Vital Signs: Vital Signs Temperature 98.1 F 10/08/20 17:43 Pulse Rate 73 10/08/20 17:43 Respiratory Rate 16 10/08/20 17:43 Blood Pressure 133/75 10/08/20 17:43 Pulse Oximetry 99 10/08/20 17:43 Course Orders Ordered: ED Orders 10/08/20 17:51 EKG-12 Lead Stat 10/08/20 18:06 Complete Blood Count AUTO DIFF Stat Comprehensive Metabolic Panel Stat Vital Signs Vital signs: Vital Signs - 8 hr 10/08/20 22:13 10/08/20 22:30 10/08/20 22:31 Pulse Rate 90 64 58 L Respiratory Rate Blood Pressure 171/82 H 136/64 Pulse Oximetry 97 100 100 10/08/20 23:00 10/08/20 23:01 Pulse Rate 57 L 56 L Respiratory Rate 16 Blood Pressure 108/55 L Pulse Oximetry 100 100 MDM - GI Bleed Lab Data Result diagrams: 10/08/20 18:06 10/08/20 18:06 Labs: Lab Results 10/08/20 10/08/20 Range/Units 18:06 18:06 WBC 9.3 (4.5-11.0) X10^3/uL RBC 4.14 (4.0-5.2) X10^6/uL Hgb 11.7 L (12.0-16.0) g/dL Hct 34.6 L (36-46) % MCV 83.5 (80-100) fL MCH 28.3 (26-34) PG MCHC 33.9 (30-36) % RDW 13.0 (11.6-14.8) % Plt Count 357 (150-400) X10^3/uL Neut % (Auto) 63.6 (50-75) % Lymph % (Auto) 24.5 L (25-40) % [place] % (Auto) 8.6 (3-14) % Eos % (Auto) 2.2 (2-4) % Baso % (Auto) 1.1 (0-2) % Neut # (Auto) 5900 (4539-1128) /uL Lymph # (Auto) 2300 (0546-0543) /uL [place] # (Auto) 800 (0-900) /uL Eos # (Auto) 200 (0-450) /uL Baso # (Auto) 100 (0-100) /uL Sodium 138 (137-145) mmol/L Potassium 3.6 (3.4-5.1) mmol/L Chloride 104 (98-107) mmol/L Carbon Dioxide 28 (22-32) mmol/L BUN 13 (7-17) mg/dL Creatinine 0.74 (0.52-1.04) mg/dL Estimated GFR > 60.0 (>60) mL/min BUN/Creatinine Ratio 17.6 (6-22) Glucose 99 (70-100) mg/dL Calcium 9.1 (8.4-10.2) mg/dL Total Bilirubin 0.2 (0.2-1.3) mg/dL AST 36 (14-36) IU/L ALT 52 H (<35) IU/L Alkaline Phosphatase 66 (38-126) U/L Total Protein 7.4 (6.3-8.2) g/dL Albumin 4.5 (3.5-5.0) g/dL Globulin 2.9 (1.7-4.1) g/dL Albumin/Globulin Ratio 1.6 (1.0-2.8) Point of Care Testing Test Results Negative Stool Occult Blood Negative Urine Dip Bedside Urine Glucose Negative Bedside Urine Bilirubin - Negative Bedside Urine Ketone - Negative Urine Specific [place] 1.02 Bedside Urine Occult Blood - Negative Bedside Urine pH 6 Bedside Urine Protein - Negative Bedside Urine Urobilinogen - Negative Bedside Urine Nitrite - Negative Bedside Urine Leukocytes - Negative Esterase MDM Narrative Medical decision making narrative: Patient has very reassuring physical exam, labs and vitals. Two episodes of painless bright red blood per rectum with no ongoing bleeding and no systemic complaints. Return precautions given and questions answered to her apparent satisfaction Discharge Plan Departure Patient Disposition: Home Clinical Impression: Acute lower gastrointestinal bleeding Instructions: Gastrointestinal Bleeding Activity Restrictions/Additional Instructions: *You have been diagnosed with [lower gastrointestinal bleeding] *What to do: *Please continue to take your regular medications as directed. 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 Let them know you were seen in the Emergency Department and that we ask that you be seen in follow up. We will electronically transmit a record of today's note if your PCP is in our system *Please consider a clear liquid diet for the next 24-48 hours and then slowly advance as tolerated. *If you do not have a primary care provider please contact the [facility] Resource line at [phone]. They will ask some questions about your medical history and help get you set up with a doctor in the community. *Return to Emergency Department if you should have any new, worsening or concerning symptoms, such as [fever greater than 101 F, shaking chills, worsening pain, persistent vomiting or other bothersome symptoms] Prescriptions: New pantoprazole [Protonix] 40 mg tablet,delayed release (DR/EC) 40 mg PO DAILY Qty: 30 RF: 0 No Action albuterol sulfate 90 mcg/actuation HFA aerosol inhaler 2 puff INHALATION Q4-6H PRN (Reason: shortness of breath or wheezing) Qty: 18 RF: 0 tizanidine 4 mg capsule 4 mg PO BEDTIME Qty: 30 RF: 2 sertraline 25 mg tablet 50 mg PO DAILY Qty: 180 RF: 1 Flovent HFA 110 mcg/actuation HFA aerosol inhaler 1 puff INHALATION BID Qty: 12 RF: 3 ipratropium-albuterol 0.5 mg-3 mg(2.5 mg base)/3 mL solution for nebulization 3 ml INHALATION QID PRN (Reason: shortness of breath or wheezing) Qty: 90 RF: 0 (DME) peak flow meter Device See Rx Instructions .ROUTE .MEDSUPPLY Qty: 1 RF: 0 hncfdsclrj-geyhzbfdusxko-rhtv [Fioricet] 50-300-40 mg capsule 1 cap PO Q4-6H PRN (Reason: pain) Qty: 14 RF: 0 nabumetone 500 mg tablet 500 mg PO BID Qty: 60 RF: 2 Referrals: Sheri Weinstein DO [Primary Care Provider] -
== END 2020-10-08 23:32 | disposition home or self-care (01) ==
PROVIDERS: Emergency Medicine; Emergency Provider Emergency Medicine; PCP Family Medicine
DX: K92.2 Gastrointestinal hemorrhage, unspecified (principal)
CPT/HCPCS: 36415; 80053; 81003; 81025; 82272; 85025; 93005; 99283; 99284